=== PATIENT | male | born 1950 | race Caucasian/White ===

== ENCOUNTER 2022-04-24 06:13 | Inpatient (IN) ==
[2022-04-19 12:09] LABS: Basophils # 0.1 10*3/uL (0.0-0.2); Basophils % 1.3 % (0.0-0.8); Eosinophils # 0.2 10*3/uL (0.0-0.87); Eosinophils % 2.7 % (0.00-10.9); Hematocrit 41.1 VOL% (42.0-52.0); Hemoglobin 13.3 GM/DL (14.0-18.0); Immature Granulocytes % 3.7 %; Immature Granulocytes Absolute 0.26 #; Lymphocytes # 1.8 10*3/uL (1.4-4.0); Lymphocytes % 26.2 % (21.2-54.2); Mean Corpuscular HGB Conc 32.4 GM/DL (32-36); Monocytes # 0.6 10*3/uL (0.11-0.8); Monocytes % 8.4 % (1.7-12.7); Neutrophils % 57.7 % (38.7-73.9); Platelet Count 265 T/CUMM (130-400); Red Blood Count 4.89 MC/CUMM (3.8-5.5); White Blood Count 6.9 T/CUMM (4-12)
[2022-04-19 12:17] LABS: INR 0.9; PT Patient Result 9.8 SECS (10.1-12.1)
[2022-04-19 12:25] LABS: Alanine Aminotransferase 61 U/L (16-61); Albumin 3.7 G/DL (3.4-5.0); Alkaline Phosphatase 238 U/L (45-117); Aspartate Amino Transferase 25 U/L (0-37); Bilirubin,Total < 0.39 MG/DL (0.20-1.00); Blood Urea Nitrogen 31 MG/DL (7-18); Carbon Dioxide 18 MMOL/L (21-32); Chloride 111 MMOL/L (98-107); Glucose 319 MG/DL (74-106); Osmolality,Calculated 295.5 MOS/KG (273-304); Potassium 4.9 MMOL/L (3.5-5.1); Sodium 139 MMOL/L (136-145); Total Protein 7.6 G/DL (6.4-8.2)
[2022-04-24] MEDS ORDERED: VANCOMYCIN 500 MG VIAL ONE (06:25)
[2022-04-24] MEDS ORDERED: VANCOMYCIN INJ 500 MG in SODIUM CHLORIDE 0.9% 100 ML IV ONE (06:30)
[2022-04-24] MEDS ORDERED: HEPARIN 10,000 UNIT/10 ML VIAL ONE ×4 (06:54→20:15)
[2022-04-24] MEDS ORDERED: HEPARIN/NACL 0.9% 2 UNITS/ML 1,000 UNIT/500 ML BAG IV ONE (06:54)
[2022-04-24] MEDS ORDERED: LIDOCAINE 1% 5 ML VIAL ONE (06:55)
[2022-04-24] MEDS ORDERED: SODIUM CHLORIDE 0.9% 1,000 ML IV ONE (06:55)
[2022-04-24] MEDS ORDERED: HEPARIN/NACL 0.9% 2 UNITS/ML 2,000 UNIT/1,000 ML BAG IV ONE ×3 (07:13→18:11)
[2022-04-24] MEDS ORDERED: MIDAZOLAM 2 MG/2 ML VIAL ONE ×4 (07:14→18:11)
[2022-04-24] MEDS ORDERED: fentaNYL 100 MCG/2 ML VIAL ONE ×6 (07:14→20:10)
[2022-04-24] MEDS ORDERED: LACTATED RINGERS 1,000 ML IV SCH (08:00)
[2022-04-24] MEDS ORDERED: PNEUMOCOCCAL VACCINE (13 VALENT) 0.5 ML SYRINGE IM ONE (08:32)
[2022-04-24] MEDS ORDERED: ONDANSETRON 4 MG/2 ML VIAL IV PRN ×2 (10:20→16:45)
[2022-04-24] MEDS ORDERED: GLUCAGON 1 MG VIAL IM PRN (10:23)
[2022-04-24] MEDS ORDERED: DEXMEDETOMIDINE 200 MCG/2 ML VIAL ONE (10:24)
[2022-04-24] MEDS ORDERED: MIDAZOLAM 10 MG/2 ML VIAL ONE (10:38)
[2022-04-24] MEDS: HYDROmorphone 1 MG/1 ML SYRINGE IV PRN ×6 (10:40→21:42)
[2022-04-24] MEDS ORDERED: LABETALOL 20 MG/4 ML SYRINGE IV ONE ×2 (11:30→11:46)
[2022-04-24] MEDS ORDERED: HEPARIN 5,000 UNIT/1 ML VIAL ONE ×2 (11:59)
[2022-04-24] MEDS ORDERED: HEPARIN 5,000 UNIT/1 ML VIAL IV ONE (12:00)
[2022-04-24] MEDS ORDERED: NITROGLYCERIN DRIP 50 MG/250 ML BOTTLE IV ONE ×2 (12:02→17:04)
[2022-04-24] MEDS ORDERED: SODIUM CHLORIDE 0.9% 1,000 ML IV PRN (12:03)
[2022-04-24] MEDS ORDERED: propofoL 200 MG/20 ML VIAL IV ONE ×2 (12:46→18:11)
[2022-04-24] MEDS ORDERED: ONDANSETRON 4 MG/2 ML VIAL ONE (12:47)
[2022-04-24] MEDS ORDERED: GLYCOPYRROLATE 0.4 MG/2 ML VIAL ONE (12:47)
[2022-04-24] MEDS ORDERED: SUCCINYLCHOLINE 200 MG/10 ML VIAL ONE (12:47)
[2022-04-24] MEDS ORDERED: LABETALOL 100 MG/20 ML VIAL IV ONE (12:47)
[2022-04-24] MEDS ORDERED: NEOSTIGMINE 10 MG/10 ML VIAL ONE (12:47)
[2022-04-24] MEDS ORDERED: ROCURONIUM 50 MG/5 ML VIAL IV ONE ×3 (12:47→20:13)
[2022-04-24] MEDS ORDERED: LACTATED RINGERS 1,000 ML IV ONE ×2 (12:47→20:15)
[2022-04-24] MEDS ORDERED: PHENYLEPHRINE DRIP 20 MG/250 ML PREMIX IV ONE ×2 (12:47→13:18)
[2022-04-24] MEDS ORDERED: SEVOFLURANE 1 UNIT/15 MINUTE INH ONE ×2 (12:49→21:04)
[2022-04-24] MEDS ORDERED: HEPARIN/NACL 0.9% 2 UNITS/ML 4,000 UNIT/2,000 ML BAG IV ONE (12:53)
[2022-04-24] MEDS ORDERED: LIDOCAINE 2% 5 ML VIAL MISC INJ ONE (14:00)
[2022-04-24] MEDS ORDERED: TISSUE ADHESIVE 1 EACH APPLICATOR TOP ONE ×2 (14:10→15:57)
[2022-04-24] MEDS ORDERED: ALTEPLASE 2 MG VIAL ONE ×2 (15:25→18:24)
[2022-04-24] MEDS ORDERED: DEXTROSE 10% 250 ML BAG IV PRN (15:43)
[2022-04-24] MEDS ORDERED: SUGAMMADEX 200 MG/2 ML VIAL IV ONE (15:46)
[2022-04-24] MEDS ORDERED: NITROGLYCERIN DRIP 50 MG/250 ML BOTTLE IV PRN (17:14)
[2022-04-24 17:28] LABS: Basophils # 0.1 10*3/uL (0.0-0.2); Basophils % 0.9 % (0.0-0.8); Eosinophils # 0.1 10*3/uL (0.0-0.87); Eosinophils % 0.7 % (0.00-10.9); Hemoglobin 10.8 GM/DL (14.0-18.0); Immature Granulocytes % 4.9 %; Immature Granulocytes Absolute 0.71 #; Lymphocytes % 14.1 % (21.2-54.2); Mean Corpuscular HGB Conc 31.8 GM/DL (32-36); Mean Corpuscular Volume 84.6 FL (87-102); Mean Platelet Volume 10.8 FL (9.6-12.0); Monocytes # 1.4 10*3/uL (0.11-0.8); Monocytes % 9.5 % (1.7-12.7); Neutrophils % 69.9 % (38.7-73.9); Platelet Count 244 T/CUMM (130-400); Red Blood Count 4.02 MC/CUMM (3.8-5.5); Red Cell Distribution Width 17.4 % (9.3-17.3); White Blood Count 14.4 T/CUMM (4-12)
[2022-04-24 17:45] LABS: INR 0.9; PT Patient Result 10.3 SECS (10.1-12.1); Partial Thromboplastin Time 41.9 SECS (23.7-32.9)
[2022-04-24] MEDS: HEPARIN DRIP 25,000 UNITS/500 ML PREMIX IV SCH (17:56)
[2022-04-24] MEDS: INSULIN REGULAR 100 UNIT/ML SUBCUT SCH ×3 (18:01→22:44)
[2022-04-24 18:07] LABS: Calcium 7.9 MG/DL (8.5-10.1); Osmolality,Calculated 292.3 MOS/KG (273-304); Potassium 4.8 MMOL/L (3.5-5.1)
[2022-04-24] MEDS ORDERED: ETOMIDATE 40 MG/20 ML VIAL IV ONE (18:10)
[2022-04-24] MEDS ORDERED: LIDOCAINE 2% 5 ML VIAL ONE (18:10)
[2022-04-24] MEDS ORDERED: VANCOMYCIN 1,000 MG VIAL ONE (18:51)
[2022-04-24] MEDS ORDERED: VANCOMYCIN INJ 1,000 MG in SODIUM CHLORIDE 0.9% 250 ML IV ONE (19:00)
[2022-04-24] MEDS: LACTATED RINGERS 1,000 ML IV SCH ×2 (19:01→19:26)
[2022-04-24] MEDS ORDERED: PHENYLEPHRINE 1 MG/10 ML SYRINGE IV ONE (19:25)
[2022-04-24] MEDS ORDERED: SODIUM CHLORIDE 0.9% 250 ML IV ONE (19:25)
[2022-04-24 20:25] LABS: Eosinophils 1 % (0-10); Lymphocytes 17 % (20-55); Total Cells Counted 100
[2022-04-24 20:26] LABS: Atypical Lymphocytes Few; Platelet Estimate Normal; Toxic Granulation 1+
[2022-04-24] MEDS ORDERED: SODIUM BICARBONATE 50 MEQ/50 ML VIAL IV ONE (20:43)
[2022-04-24] MEDS ORDERED: FAMOTIDINE 20 MG TABLET PO SCH (21:00)
[2022-04-24] MEDS ORDERED: HEPARIN DRIP 25,000 UNITS/500 ML PREMIX IV SCH (21:00)
[2022-04-24] MEDS: ALTEPLASE 24 MG in SODIUM CHLORIDE 0.9% 480 ML IV SCH (21:20)
[2022-04-24 21:56] LABS: ABG Base Excess -7.3 MMOL/L (-2.5-2.5); ABG HCO3 18.5 MMOL/L (20-26); ABG Oxygen Saturation 99.2 % (95-100); ABG PH 7.251 (7.35-7.45); ABG TCO2 18.2 MMOL/L (23-27)
[2022-04-24] MEDS: fentaNYL INJ 1,250 MCG in SODIUM CHLORIDE 0.9% 225 ML IV PRN (21:58)
[2022-04-24 22:31] LABS: PT Patient Result 10.6 SECS (10.1-12.1)
[2022-04-24] MEDS: INSULIN GLARGINE 100 UNIT/ML SUBCUT SCH (22:32)
[2022-04-24 22:54] LABS: Partial Thromboplastin Time 108.7 SECS (23.7-32.9)
[2022-04-24] MEDS: SODIUM BICARB INJ 50 MEQ in SODIUM CHLORIDE 0.45% 1,000 ML IV SCH (23:00)
[2022-04-24 23:33] LABS: INR 0.9; PT Patient Result 10.4 SECS (10.1-12.1); Partial Thromboplastin Time 59.4 SECS (23.7-32.9)
[2022-04-25 01:24] LABS: Calcium 7.5 MG/DL (8.5-10.1); Potassium 4.7 MMOL/L (3.5-5.1)
[2022-04-25 03:35] LABS: Basophils % 0.4 % (0.0-0.8); Eosinophils % 0.3 % (0.00-10.9); Hematocrit 30.5 VOL% (42.0-52.0); Immature Granulocytes % 1.8 %; Immature Granulocytes Absolute 0.18 #; Lymphocytes # 1.1 10*3/uL (1.4-4.0); Mean Corpuscular HGB Conc 32.8 GM/DL (32-36); Mean Corpuscular Volume 85.4 FL (87-102); Mean Platelet Volume 10.1 FL (9.6-12.0); Monocytes # 1.3 10*3/uL (0.11-0.8); Monocytes % 13.5 % (1.7-12.7); Platelet Count 167 T/CUMM (130-400); Red Blood Count 3.57 MC/CUMM (3.8-5.5); White Blood Count 9.8 T/CUMM (4-12)
[2022-04-25 03:48] LABS: INR 0.9; PT Patient Result 10.1 SECS (10.1-12.1)
[2022-04-25 03:52] LABS: Calcium 7.4 MG/DL (8.5-10.1); Potassium 4.5 MMOL/L (3.5-5.1)
[2022-04-25 03:53] LABS: ABG Base Excess -4.8 MMOL/L (-2.5-2.5); ABG HCO3 20.5 MMOL/L (20-26); ABG Oxygen Saturation 99.1 % (95-100); ABG PH 7.292 (7.35-7.45); ABG TCO2 19.9 MMOL/L (23-27)
[2022-04-25] MEDS: fentaNYL INJ 1,250 MCG in SODIUM CHLORIDE 0.9% 225 ML IV PRN ×3 (04:23→17:21)
[2022-04-25] MEDS ORDERED: LACTATED RINGERS 500 ML IV ONE (04:28)
[2022-04-25] MEDS ORDERED: MIDAZOLAM 100 MG in SODIUM CHLORIDE 0.9% 80 ML IV PRN (04:43)
[2022-04-25 06:01] LABS: INR 0.9; PT Patient Result 10.2 SECS (10.1-12.1); Partial Thromboplastin Time 30.3 SECS (23.7-32.9)
[2022-04-25] MEDS: SODIUM BICARB INJ 50 MEQ in SODIUM CHLORIDE 0.45% 1,000 ML IV SCH ×2 (08:09→19:52)
[2022-04-25] MEDS: INSULIN REGULAR 100 UNIT/ML SUBCUT SCH ×4 (09:13→20:03)
[2022-04-25 09:14] LABS: Partial Thromboplastin Time 28.8 SECS (23.7-32.9)
[2022-04-25] MEDS: PANTOPRAZOLE 40 MG VIAL IV SCH (09:14)
[2022-04-25] MEDS: lisinopriL 20 MG TABLET PO SCH (10:21)
[2022-04-25] MEDS: ASPIRIN CHEW 81 MG TABLET PO SCH (10:21)
[2022-04-25] MEDS ORDERED: NOREPINEPHRINE 4 MG/4 ML VIAL IV ONE (11:18)
[2022-04-25 11:28] LABS: ABG Base Excess -3.6 MMOL/L (-2.5-2.5); ABG HCO3 21.4 MMOL/L (20-26); ABG PCO2 38.5 MM HG (35-48); ABG PH 7.355 (7.35-7.45)
[2022-04-25] MEDS ORDERED: HEPARIN/NACL 0.9% 2 UNITS/ML 2,000 UNIT/1,000 ML BAG IV ONE (11:29)
[2022-04-25] MEDS ORDERED: MIDAZOLAM 10 MG/2 ML VIAL ONE (11:38)
[2022-04-25] MEDS ORDERED: ROCURONIUM 50 MG/5 ML VIAL IV ONE ×2 (11:38→13:41)
[2022-04-25] MEDS ORDERED: HEPARIN 1,000 UNIT/1 ML VIAL ONE (12:23)
[2022-04-25] MEDS ORDERED: ALTEPLASE 2 MG VIAL ONE (12:53)
[2022-04-25] MEDS ORDERED: SEVOFLURANE 1 UNIT/15 MINUTE INH ONE (13:41)
[2022-04-25] MEDS: HEPARIN DRIP 25,000 UNITS/500 ML PREMIX IV SCH (19:36)
[2022-04-25] MEDS: INSULIN GLARGINE 100 UNIT/ML SUBCUT SCH (20:04)
[2022-04-25] MEDS: ALTEPLASE 24 MG in SODIUM CHLORIDE 0.9% 480 ML IV SCH (21:07)
[2022-04-25 21:17] LABS: Partial Thromboplastin Time 29.4 SECS (23.7-32.9)
[2022-04-25 22:38] LABS: Hematocrit 28.8 VOL% (42.0-52.0); Hemoglobin 8.9 GM/DL (14.0-18.0)
[2022-04-25] MEDS: HYDROmorphone 1 MG/1 ML SYRINGE IV PRN (22:38)
[2022-04-26] MEDS: fentaNYL INJ 1,250 MCG in SODIUM CHLORIDE 0.9% 225 ML IV PRN ×2 (00:09→07:50)
[2022-04-26] MEDS: SODIUM BICARB INJ 50 MEQ in SODIUM CHLORIDE 0.45% 1,000 ML IV SCH ×4 (00:23→12:23)
[2022-04-26 04:35] LABS: ABG Base Excess -2.9 MMOL/L (-2.5-2.5); ABG Oxygen Saturation 98.7 % (95-100); ABG PCO2 43.1 MM HG (35-48); ABG PH 7.332 (7.35-7.45); ABG TCO2 21.4 MMOL/L (23-27)
[2022-04-26 04:36] LABS: Basophils % 0.4 % (0.0-0.8); Eosinophils % 0.5 % (0.00-10.9); Hematocrit 25.4 VOL% (42.0-52.0); Hemoglobin 7.8 GM/DL (14.0-18.0); Immature Granulocytes % 0.8 %; Immature Granulocytes Absolute 0.07 #; Lymphocytes # 0.7 10*3/uL (1.4-4.0); Lymphocytes % 8.8 % (21.2-54.2); Mean Corpuscular HGB Conc 30.7 GM/DL (32-36); Mean Corpuscular Volume 87.9 FL (87-102); Mean Platelet Volume 10.5 FL (9.6-12.0); Monocytes # 1.2 10*3/uL (0.11-0.8); Monocytes % 14.1 % (1.7-12.7); Neutrophils % 75.4 % (38.7-73.9); Platelet Count 120 T/CUMM (130-400); Red Blood Count 2.89 MC/CUMM (3.8-5.5); Red Cell Distribution Width 18.2 % (9.3-17.3); White Blood Count 8.4 T/CUMM (4-12)
[2022-04-26 04:51] LABS: Calcium 7.1 MG/DL (8.5-10.1); Osmolality,Calculated 297.6 MOS/KG (273-304); Potassium 4.1 MMOL/L (3.5-5.1)
[2022-04-26 05:04] LABS: PT Patient Result 10.7 SECS (10.1-12.1)
[2022-04-26 05:10] LABS: Partial Thromboplastin Time 31.1 SECS (23.7-32.9)
[2022-04-26] MEDS: HEPARIN/NACL 0.9% 2 UNITS/ML 1,000 UNIT/500 ML BAG IV SCH (07:00)
[2022-04-26] MEDS ORDERED: HEPARIN 5,000 UNIT/1 ML VIAL ONE (07:38)
[2022-04-26] MEDS ORDERED: TISSUE ADHESIVE 1 EACH APPLICATOR TOP ONE (07:41)
[2022-04-26] MEDS: INSULIN REGULAR 100 UNIT/ML SUBCUT SCH ×4 (08:16→20:08)
[2022-04-26] MEDS: PANTOPRAZOLE 40 MG VIAL IV SCH (08:18)
[2022-04-26] MEDS: lisinopriL 20 MG TABLET PO SCH (08:18)
[2022-04-26] MEDS: ASPIRIN CHEW 81 MG TABLET PO SCH (08:18)
[2022-04-26] MEDS ORDERED: ROCURONIUM 50 MG/5 ML VIAL IV ONE ×2 (08:41→10:09)
[2022-04-26] MEDS ORDERED: VANCOMYCIN INJ 1,000 MG in SODIUM CHLORIDE 0.9% 250 ML IV ONE (08:42)
[2022-04-26] MEDS ORDERED: MIDAZOLAM 10 MG/2 ML VIAL ONE (08:43)
[2022-04-26] MEDS ORDERED: MICROFIBRILLAR COLLAGEN POWDER 1 GM CAN TOP ONE (09:14)
[2022-04-26] MEDS ORDERED: fentaNYL 100 MCG/2 ML VIAL ONE (09:14)
[2022-04-26] MEDS ORDERED: VANCOMYCIN 1,000 MG VIAL ONE (09:22)
[2022-04-26 09:41] LABS: Partial Thromboplastin Time 34.5 SECS (23.7-32.9)
[2022-04-26] MEDS ORDERED: GLYCOPYRROLATE 0.4 MG/2 ML VIAL ONE (10:04)
[2022-04-26] MEDS ORDERED: NEOSTIGMINE 10 MG/10 ML VIAL ONE (10:04)
[2022-04-26] MEDS ORDERED: PHENYLEPHRINE 1 MG/10 ML SYRINGE IV ONE (10:05)
[2022-04-26] MEDS ORDERED: SEVOFLURANE 1 UNIT/15 MINUTE INH ONE (10:05)
[2022-04-26] MEDS ORDERED: MIDAZOLAM 2 MG/2 ML VIAL ONE (10:09)
[2022-04-26] MEDS: HYDROmorphone 1 MG/1 ML SYRINGE IV PRN ×4 (10:47→22:09)
[2022-04-26] MEDS ORDERED: FUROSEMIDE 40 MG/4 ML VIAL IV ONE (11:41)
[2022-04-26] MEDS ORDERED: HEPARIN/NACL 0.9% 2 UNITS/ML 1,000 UNIT/500 ML BAG IV ONE (11:49)
[2022-04-26 11:58] LABS: ABG Base Excess -4.2 MMOL/L (-2.5-2.5); ABG HCO3 20.8 MMOL/L (20-26); ABG Oxygen Saturation 91.7 % (95-100); ABG PCO2 43.9 MM HG (35-48); ABG PO2 65.2 MM HG (80-95); ABG TCO2 19.9 MMOL/L (23-27)
[2022-04-26 12:10] LABS: Basophils % 0.4 % (0.0-0.8); Eosinophils # 0.1 10*3/uL (0.0-0.87); Eosinophils % 0.9 % (0.00-10.9); Hematocrit 30.3 VOL% (42.0-52.0); Hemoglobin 9.3 GM/DL (14.0-18.0); Immature Granulocytes % 1.1 %; Lymphocytes # 0.6 10*3/uL (1.4-4.0); Lymphocytes % 6.2 % (21.2-54.2); Mean Corpuscular HGB Conc 30.7 GM/DL (32-36); Mean Corpuscular Volume 89.1 FL (87-102); Monocytes # 1.5 10*3/uL (0.11-0.8); Monocytes % 16.7 % (1.7-12.7); Neutrophils % 74.7 % (38.7-73.9); Platelet Count 139 T/CUMM (130-400); Red Cell Distribution Width 17.5 % (9.3-17.3); White Blood Count 9.1 T/CUMM (4-12)
[2022-04-26 13:41] LABS: Band Neutrophils 8 % (0-10); Eosinophils 1 % (0-10); Hypochromia 1+; Lymphocytes 9 % (20-55); Total Cells Counted 100
[2022-04-26 13:42] LABS: Platelet Estimate Adequate; Polychromasia Few
[2022-04-26] MEDS: ACETAMINOPHEN 325 MG/10.15 ML UDCUP PO PRN ×2 (14:43→19:04)
[2022-04-26 14:46] LABS: Bacteria,Urine Occasional /HPF (Few); Mucus,Urine Occasional /LPF (Occasional); RBC,Urine 2 /HPF (0-4); Squamous Epithelial Cell,Urine Occasional /HPF (0-10); Urine Appearance Clear (Clear); Urine Color Yellow (Yellow)
[2022-04-26 14:47] LABS: Bilirubin,Urine Negative (Negative); Blood, Urine Large mg/dL (Negative); Glucose,Urine (UA) Negative (Negative); Ketones,Urine Negative (Negative); Nitrite,Urine Positive (Negative); Protein,Urine Negative (Negative); Urine Specific Gravity 1.015 (1.001-1.035); Urine Urobilinogen 0.2 eU/dL (<2.0)
[2022-04-26] MEDS: INSULIN GLARGINE 100 UNIT/ML SUBCUT SCH (20:07)
[2022-04-27 00:28] LABS: Partial Thromboplastin Time 30.4 SECS (23.7-32.9)
[2022-04-27] MEDS: HYDROmorphone 1 MG/1 ML SYRINGE IV PRN ×6 (01:51→23:40)
[2022-04-27 03:55] LABS: ABG Base Excess -1.6 MMOL/L (-2.5-2.5); ABG HCO3 22.9 MMOL/L (20-26); ABG Oxygen Saturation 89.4 % (95-100); ABG PCO2 41.6 MM HG (35-48); ABG PH 7.363 (7.35-7.45); ABG PO2 58.6 MM HG (80-95); ABG TCO2 21.4 MMOL/L (23-27); Basophils % 0.4 % (0.0-0.8); Eosinophils # 0.1 10*3/uL (0.0-0.87); Eosinophils % 0.7 % (0.00-10.9); Hemoglobin 10.4 GM/DL (14.0-18.0); Immature Granulocytes % 0.7 %; Immature Granulocytes Absolute 0.05 #; Lymphocytes # 0.9 10*3/uL (1.4-4.0); Mean Corpuscular HGB Conc 31.5 GM/DL (32-36); Mean Corpuscular Volume 86.8 FL (87-102); Mean Platelet Volume 10.6 FL (9.6-12.0); Monocytes # 1.1 10*3/uL (0.11-0.8); Monocytes % 16.1 % (1.7-12.7); NRBC # 0.02 10*3/uL; Neutrophils % 69.1 % (38.7-73.9); Platelet Count 158 T/CUMM (130-400); Red Cell Distribution Width 17.7 % (9.3-17.3); White Blood Count 6.8 T/CUMM (4-12)
[2022-04-27] MEDS: ACETAMINOPHEN 325 MG/10.15 ML UDCUP PO PRN ×3 (03:58→23:40)
[2022-04-27 04:07] LABS: Osmolality,Calculated 297.7 MOS/KG (273-304); Potassium 3.9 MMOL/L (3.5-5.1)
[2022-04-27 04:18] LABS: Band Neutrophils 12 % (0-10); Eosinophils 1 % (0-10); Lymphocytes 11 % (20-55); Microcytosis 1+; Total Cells Counted 100
[2022-04-27 04:19] LABS: Platelet Estimate Adequate; Polychromasia Slight
[2022-04-27] MEDS: PANTOPRAZOLE 40 MG VIAL IV SCH (08:10)
[2022-04-27] MEDS: INSULIN REGULAR 100 UNIT/ML SUBCUT SCH ×3 (08:10→16:30)
[2022-04-27] MEDS: ASPIRIN CHEW 81 MG TABLET PO SCH (08:15)
[2022-04-27] MEDS: lisinopriL 20 MG TABLET PO SCH (08:15)
[2022-04-27] MEDS: NOREPINEPHRINE 8 MG in SODIUM CHLORIDE 0.9% 242 ML IV PRN (09:00)
[2022-04-27] MEDS ORDERED: CLOPIDOGREL 300 MG TABLET PO ONE (09:44)
[2022-04-27] MEDS: SODIUM BICARB INJ 50 MEQ in SODIUM CHLORIDE 0.45% 1,000 ML IV SCH (11:20)
[2022-04-27] MEDS: INSULIN LISPRO 100 UNIT/ML SUBCUT SCH ×2 (20:09→23:39)
[2022-04-27] MEDS: INSULIN GLARGINE 100 UNIT/ML SUBCUT SCH (20:09)
[2022-04-27] MEDS: HEPARIN/NACL 0.9% 2 UNITS/ML 1,000 UNIT/500 ML BAG IV SCH (20:18)
[2022-04-28 00:01] LABS: Partial Thromboplastin Time 33.6 SECS (23.7-32.9)
[2022-04-28] MEDS: NOREPINEPHRINE 8 MG in SODIUM CHLORIDE 0.9% 242 ML IV PRN ×2 (02:04→22:58)
[2022-04-28 03:56] LABS: ABG Base Excess 0.2 MMOL/L (-2.5-2.5); ABG HCO3 24.6 MMOL/L (20-26); ABG Oxygen Saturation 98.2 % (95-100); ABG PCO2 41.7 MM HG (35-48); ABG TCO2 22.7 MMOL/L (23-27); Basophils # 0.1 10*3/uL (0.0-0.2); Basophils % 0.5 % (0.0-0.8); Eosinophils # 0.1 10*3/uL (0.0-0.87); Eosinophils % 1.4 % (0.00-10.9); Hematocrit 30.1 VOL% (42.0-52.0); Hemoglobin 9.4 GM/DL (14.0-18.0); Lymphocytes % 9.4 % (21.2-54.2); Mean Corpuscular HGB Conc 31.2 GM/DL (32-36); Mean Corpuscular Volume 86.5 FL (87-102); Mean Platelet Volume 11.1 FL (9.6-12.0); Monocytes # 1.5 10*3/uL (0.11-0.8); Monocytes % 14.4 % (1.7-12.7); NRBC # 0.04 10*3/uL; Neutrophils % 72.3 % (38.7-73.9); Platelet Count 219 T/CUMM (130-400); Red Blood Count 3.48 MC/CUMM (3.8-5.5); Red Cell Distribution Width 17.7 % (9.3-17.3); White Blood Count 10.2 T/CUMM (4-12)
[2022-04-28 04:10] LABS: Osmolality,Calculated 303.4 MOS/KG (273-304); Potassium 3.6 MMOL/L (3.5-5.1)
[2022-04-28] MEDS: HYDROmorphone 1 MG/1 ML SYRINGE IV PRN ×4 (04:17→19:43)
[2022-04-28] MEDS: INSULIN LISPRO 100 UNIT/ML SUBCUT SCH ×5 (04:17→20:02)
[2022-04-28 04:24] LABS: Band Neutrophils 6 % (0-10); Eosinophils 1 % (0-10); Hypochromia Slight; Lymphocytes 10 % (20-55); Nucleated Red Blood Cells 2 (0-5); Promyelocytes 1 %; Total Cells Counted 100
[2022-04-28 04:25] LABS: Microcytosis 1+; Platelet Estimate Normal
[2022-04-28] MEDS: SODIUM BICARB INJ 50 MEQ in SODIUM CHLORIDE 0.45% 1,000 ML IV SCH ×2 (05:05→09:12)
[2022-04-28] MEDS: PANTOPRAZOLE 40 MG VIAL IV SCH (09:23)
[2022-04-28] MEDS: CLOPIDOGREL 75 MG TABLET PO SCH (09:23)
[2022-04-28] MEDS: lisinopriL 20 MG TABLET PO SCH (09:23)
[2022-04-28] MEDS: ASPIRIN CHEW 81 MG TABLET PO SCH (09:23)
[2022-04-28] MEDS ORDERED: VANCOMYCIN INJ 1,000 MG in SODIUM CHLORIDE 0.9% 250 ML IV SCH (10:30)
[2022-04-28] MEDS: HEPARIN/NACL 0.9% 2 UNITS/ML 1,000 UNIT/500 ML BAG IV SCH (10:41)
[2022-04-28] MEDS: VANCOMYCIN INJ 1,250 MG in SODIUM CHLORIDE 0.9% 250 ML IV SCH (14:37)
[2022-04-28] MEDS: ACETAMINOPHEN 325 MG/10.15 ML UDCUP PO PRN ×2 (15:03→19:42)
[2022-04-28] MEDS: INSULIN GLARGINE 100 UNIT/ML SUBCUT SCH (20:03)
[2022-04-29] MEDS: ACETAMINOPHEN 325 MG/10.15 ML UDCUP PO PRN ×4 (00:05→16:40)
[2022-04-29] MEDS: INSULIN LISPRO 100 UNIT/ML SUBCUT SCH ×6 (00:08→20:42)
[2022-04-29] MEDS: SODIUM BICARB INJ 50 MEQ in SODIUM CHLORIDE 0.45% 1,000 ML IV SCH ×2 (02:37→05:33)
[2022-04-29 03:55] LABS: ABG Base Excess 0.3 MMOL/L (-2.5-2.5); ABG HCO3 24.7 MMOL/L (20-26); ABG Oxygen Saturation 94.7 % (95-100); ABG PCO2 37.5 MM HG (35-48); ABG PH 7.423 (7.35-7.45); ABG TCO2 22.3 MMOL/L (23-27)
[2022-04-29 03:59] LABS: Basophils # 0.1 10*3/uL (0.0-0.2); Basophils % 0.6 % (0.0-0.8); Eosinophils # 0.2 10*3/uL (0.0-0.87); Eosinophils % 1.6 % (0.00-10.9); Hematocrit 29.5 VOL% (42.0-52.0); Immature Granulocytes % 5.8 %; Lymphocytes # 0.4 10*3/uL (1.4-4.0); Lymphocytes % 4.2 % (21.2-54.2); Mean Corpuscular HGB Conc 30.5 GM/DL (32-36); Mean Corpuscular Volume 88.9 FL (87-102); Mean Platelet Volume 10.5 FL (9.6-12.0); Monocytes # 0.9 10*3/uL (0.11-0.8); NRBC # 0.11 10*3/uL; Neutrophils % 78.8 % (38.7-73.9); Platelet Count 213 T/CUMM (130-400); Red Blood Count 3.32 MC/CUMM (3.8-5.5); Red Cell Distribution Width 17.8 % (9.3-17.3); White Blood Count 10.4 T/CUMM (4-12)
[2022-04-29 04:17] LABS: Calcium 8.2 MG/DL (8.5-10.1); Osmolality,Calculated 305.1 MOS/KG (273-304); Potassium 3.3 MMOL/L (3.5-5.1)
[2022-04-29 04:19] LABS: Band Neutrophils 10 % (0-10); Eosinophils 5 % (0-10); Hypochromia 1+; Lymphocytes 3 % (20-55); Microcytosis 1+; Myelocytes 1 %; Nucleated Red Blood Cells 1 (0-5); Platelet Estimate Adequate; Total Cells Counted 100
[2022-04-29] MEDS ORDERED: POTASSIUM CHLORIDE RIDER 10 MEQ/100 ML PREMIX IV ONE (04:31)
[2022-04-29] MEDS: POTASSIUM CHLORIDE RIDER 10 MEQ/100 ML PREMIX IV SCH ×4 (04:34→08:28)
[2022-04-29] MEDS: HEPARIN/NACL 0.9% 2 UNITS/ML 1,000 UNIT/500 ML BAG IV SCH (06:35)
[2022-04-29] MEDS: CLOPIDOGREL 75 MG TABLET PO SCH (08:27)
[2022-04-29] MEDS: PANTOPRAZOLE 40 MG VIAL IV SCH (08:27)
[2022-04-29] MEDS: ASPIRIN CHEW 81 MG TABLET PO SCH (08:27)
[2022-04-29] MEDS: VANCOMYCIN INJ 1,250 MG in SODIUM CHLORIDE 0.9% 250 ML IV SCH (09:34)
[2022-04-29] MEDS: MEROPENEM 500 MG in SODIUM CHLORIDE 0.9% 100 ML IV SCH ×2 (11:52→18:19)
[2022-04-29] MEDS: INSULIN GLARGINE 100 UNIT/ML SUBCUT SCH (20:42)
[2022-04-30] MEDS: INSULIN LISPRO 100 UNIT/ML SUBCUT SCH ×6 (00:17→20:44)
[2022-04-30] MEDS: SODIUM BICARB INJ 50 MEQ in SODIUM CHLORIDE 0.45% 1,000 ML IV SCH ×3 (00:17→21:53)
[2022-04-30] MEDS: VANCOMYCIN INJ 1,250 MG in SODIUM CHLORIDE 0.9% 250 ML IV SCH (01:30)
[2022-04-30] MEDS: MEROPENEM 500 MG in SODIUM CHLORIDE 0.9% 100 ML IV SCH ×3 (03:06→18:43)
[2022-04-30 04:56] LABS: ABG Base Excess -1.3 MMOL/L (-2.5-2.5); ABG HCO3 23.4 MMOL/L (20-26); ABG Oxygen Saturation 98.9 % (95-100); ABG PCO2 38.7 MM HG (35-48); ABG TCO2 21.6 MMOL/L (23-27)
[2022-04-30 05:01] LABS: Basophils # 0.1 10*3/uL (0.0-0.2); Basophils % 0.5 % (0.0-0.8); Eosinophils # 0.2 10*3/uL (0.0-0.87); Eosinophils % 1.2 % (0.00-10.9); Hematocrit 28.2 VOL% (42.0-52.0); Hemoglobin 8.8 GM/DL (14.0-18.0); Immature Granulocytes % 7.1 %; Immature Granulocytes Absolute 1.09 #; Lymphocytes # 0.6 10*3/uL (1.4-4.0); Lymphocytes % 4.1 % (21.2-54.2); Mean Corpuscular HGB Conc 31.2 GM/DL (32-36); Mean Corpuscular Volume 87.9 FL (87-102); Mean Platelet Volume 10.8 FL (9.6-12.0); Monocytes # 1.6 10*3/uL (0.11-0.8); Monocytes % 10.2 % (1.7-12.7); NRBC # 0.05 10*3/uL; Neutrophils % 76.9 % (38.7-73.9); Platelet Count 222 T/CUMM (130-400); Red Blood Count 3.21 MC/CUMM (3.8-5.5); Red Cell Distribution Width 18.2 % (9.3-17.3); White Blood Count 15.3 T/CUMM (4-12)
[2022-04-30 05:13] LABS: Calcium 8.4 MG/DL (8.5-10.1); Osmolality,Calculated 305.3 MOS/KG (273-304); Potassium 3.6 MMOL/L (3.5-5.1)
[2022-04-30 05:20] LABS: Band Neutrophils 7 % (0-10); Hypochromia Slight; Lymphocytes 4 % (20-55); Microcytosis Slight; Platelet Estimate Adequate; Total Cells Counted 100
[2022-04-30] MEDS: HEPARIN/NACL 0.9% 2 UNITS/ML 1,000 UNIT/500 ML BAG IV SCH (06:13)
[2022-04-30] MEDS: PANTOPRAZOLE 40 MG VIAL IV SCH (09:03)
[2022-04-30] MEDS: ASPIRIN CHEW 81 MG TABLET PO SCH (09:04)
[2022-04-30] MEDS: CLOPIDOGREL 75 MG TABLET PO SCH (09:05)
[2022-04-30] MEDS: ACETAMINOPHEN 325 MG/10.15 ML UDCUP PO PRN (14:38)
[2022-04-30] MEDS: INSULIN GLARGINE 100 UNIT/ML SUBCUT SCH (20:44)
[2022-05-01] MEDS: INSULIN LISPRO 100 UNIT/ML SUBCUT SCH ×6 (00:28→19:49)
[2022-05-01] MEDS: MEROPENEM 500 MG in SODIUM CHLORIDE 0.9% 100 ML IV SCH ×3 (01:48→17:30)
[2022-05-01 03:48] LABS: ABG Base Excess 0.6 MMOL/L (-2.5-2.5); ABG HCO3 24.9 MMOL/L (20-26); ABG Oxygen Saturation 98.6 % (95-100); ABG PCO2 37.8 MM HG (35-48); ABG PH 7.425 (7.35-7.45); ABG TCO2 22.9 MMOL/L (23-27); Basophils # 0.1 10*3/uL (0.0-0.2); Basophils % 0.6 % (0.0-0.8); Eosinophils # 0.3 10*3/uL (0.0-0.87); Eosinophils % 1.4 % (0.00-10.9); Hematocrit 26.9 VOL% (42.0-52.0); Hemoglobin 8.3 GM/DL (14.0-18.0); Immature Granulocytes % 9.4 %; Immature Granulocytes Absolute 1.81 #; Lymphocytes # 0.9 10*3/uL (1.4-4.0); Lymphocytes % 4.9 % (21.2-54.2); Mean Corpuscular HGB Conc 30.9 GM/DL (32-36); Mean Corpuscular Volume 87.9 FL (87-102); Mean Platelet Volume 11.2 FL (9.6-12.0); Monocytes # 1.5 10*3/uL (0.11-0.8); Monocytes % 7.8 % (1.7-12.7); NRBC # 0.07 10*3/uL; Neutrophils % 75.9 % (38.7-73.9); Platelet Count 287 T/CUMM (130-400); Red Blood Count 3.06 MC/CUMM (3.8-5.5); Red Cell Distribution Width 18.6 % (9.3-17.3); White Blood Count 19.2 T/CUMM (4-12)
[2022-05-01 04:02] LABS: Calcium 8.3 MG/DL (8.5-10.1); Osmolality,Calculated 317.7 MOS/KG (273-304); Potassium 3.6 MMOL/L (3.5-5.1)
[2022-05-01 04:22] LABS: Band Neutrophils 1 % (0-10); Eosinophils 3 % (0-10); Hypochromia Slight; Lymphocytes 7 % (20-55); Microcytosis Slight; Nucleated Red Blood Cells 1 /100 WBC (0-5); Platelet Estimate Adequate; Total Cells Counted 100
[2022-05-01] MEDS: HEPARIN/NACL 0.9% 2 UNITS/ML 1,000 UNIT/500 ML BAG IV SCH (07:57)
[2022-05-01] MEDS: PANTOPRAZOLE 40 MG VIAL IV SCH (08:04)
[2022-05-01] MEDS: ASPIRIN CHEW 81 MG TABLET PO SCH (08:05)
[2022-05-01] MEDS: CLOPIDOGREL 75 MG TABLET PO SCH (08:05)
[2022-05-01] MEDS: SODIUM CHLORIDE 0.45% 1,000 ML IV SCH ×2 (10:15→19:58)
[2022-05-01] MEDS ORDERED: MORPHINE 2 MG/1 ML SYRINGE ONE (13:50)
[2022-05-01] MEDS: MORPHINE 2 MG/1 ML SYRINGE IV PRN ×2 (14:00→20:34)
[2022-05-01] MEDS: ACETAMINOPHEN 325 MG/10.15 ML UDCUP PO PRN (14:04)
[2022-05-01] MEDS: hydrALAZINE 20 MG/1 ML VIAL IV PRN (20:34)
[2022-05-01] MEDS: INSULIN GLARGINE 100 UNIT/ML SUBCUT SCH (21:57)
[2022-05-02] MEDS: INSULIN LISPRO 100 UNIT/ML SUBCUT SCH ×6 (00:10→20:43)
[2022-05-02] MEDS: MEROPENEM 500 MG in SODIUM CHLORIDE 0.9% 100 ML IV SCH ×3 (01:31→17:30)
[2022-05-02 04:57] LABS: ABG Base Excess -1.8 MMOL/L (-2.5-2.5); ABG HCO3 22.9 MMOL/L (20-26); ABG Oxygen Saturation 96.8 % (95-100); ABG PCO2 38.3 MM HG (35-48); ABG PH 7.386 (7.35-7.45); ABG TCO2 21.4 MMOL/L (23-27)
[2022-05-02 05:00] LABS: Basophils # 0.1 10*3/uL (0.0-0.2); Basophils % 0.6 % (0.0-0.8); Eosinophils # 0.4 10*3/uL (0.0-0.87); Eosinophils % 1.7 % (0.00-10.9); Hematocrit 25.9 VOL% (42.0-52.0); Immature Granulocytes % 12.4 %; Immature Granulocytes Absolute 2.77 #; Lymphocytes # 1.2 10*3/uL (1.4-4.0); Lymphocytes % 5.5 % (21.2-54.2); Mean Corpuscular HGB Conc 30.9 GM/DL (32-36); Mean Corpuscular Volume 89.3 FL (87-102); Mean Platelet Volume 11.1 FL (9.6-12.0); Monocytes # 1.5 10*3/uL (0.11-0.8); Monocytes % 6.5 % (1.7-12.7); NRBC # 0.06 10*3/uL; Neutrophils % 73.3 % (38.7-73.9); Platelet Count 327 T/CUMM (130-400); Red Cell Distribution Width 18.7 % (9.3-17.3); White Blood Count 22.4 T/CUMM (4-12)
[2022-05-02 05:14] LABS: Calcium 8.1 MG/DL (8.5-10.1); Osmolality,Calculated 323.4 MOS/KG (273-304); Potassium 3.6 MMOL/L (3.5-5.1)
[2022-05-02 05:20] LABS: Band Neutrophils 3 % (0-10); Hypochromia Slight; Lymphocytes 6 % (20-55); Microcytosis Slight; Platelet Estimate Adequate; Total Cells Counted 100
[2022-05-02] MEDS: SODIUM CHLORIDE 0.45% 1,000 ML IV SCH ×2 (05:53→16:00)
[2022-05-02] MEDS: HEPARIN/NACL 0.9% 2 UNITS/ML 1,000 UNIT/500 ML BAG IV SCH (06:03)
[2022-05-02] MEDS: hydrALAZINE 20 MG/1 ML VIAL IV PRN (06:14)
[2022-05-02] MEDS: MORPHINE 2 MG/1 ML SYRINGE IV PRN ×2 (06:14→14:55)
[2022-05-02] MEDS: PANTOPRAZOLE 40 MG VIAL IV SCH (08:04)
[2022-05-02] MEDS: CLOPIDOGREL 75 MG TABLET PO SCH (08:05)
[2022-05-02] MEDS: ASPIRIN CHEW 81 MG TABLET PO SCH (08:05)
[2022-05-02] MEDS ORDERED: methylPREDNISolone SOD SUC 125 MG/2 ML VIAL IV ONE (08:35)
[2022-05-02] MEDS: ALBUTEROL/IPRATROPIUM 3 ML NEB RESP TX SCH ×2 (13:52→19:18)
[2022-05-02] MEDS: INSULIN GLARGINE 100 UNIT/ML SUBCUT SCH (20:43)
[2022-05-03] MEDS: INSULIN LISPRO 100 UNIT/ML SUBCUT SCH ×6 (00:01→21:19)
[2022-05-03] MEDS: ALBUTEROL/IPRATROPIUM 3 ML NEB RESP TX SCH ×4 (00:30→19:50)
[2022-05-03] MEDS: SODIUM CHLORIDE 0.45% 1,000 ML IV SCH ×3 (02:11→23:23)
[2022-05-03] MEDS: MEROPENEM 500 MG in SODIUM CHLORIDE 0.9% 100 ML IV SCH ×3 (02:40→17:59)
[2022-05-03 05:44] LABS: Basophils # 0.1 10*3/uL (0.0-0.2); Basophils % 0.5 % (0.0-0.8); Eosinophils % 0.2 % (0.00-10.9); Hematocrit 25.4 VOL% (42.0-52.0); Hemoglobin 7.8 GM/DL (14.0-18.0); Lymphocytes # 1.3 10*3/uL (1.4-4.0); Lymphocytes % 6.4 % (21.2-54.2); Mean Corpuscular HGB Conc 30.7 GM/DL (32-36); Mean Corpuscular Volume 88.5 FL (87-102); Mean Platelet Volume 11.1 FL (9.6-12.0); Monocytes # 1.3 10*3/uL (0.11-0.8); Monocytes % 6.1 % (1.7-12.7); NRBC # 0.05 10*3/uL; Neutrophils % 70.8 % (38.7-73.9); Platelet Count 382 T/CUMM (130-400); Red Blood Count 2.87 MC/CUMM (3.8-5.5); Red Cell Distribution Width 18.8 % (9.3-17.3); White Blood Count 20.6 T/CUMM (4-12)
[2022-05-03 05:53] LABS: ABG Base Excess -3.3 MMOL/L (-2.5-2.5); ABG HCO3 21.6 MMOL/L (20-26); ABG Oxygen Saturation 97.3 % (95-100); ABG PCO2 33.9 MM HG (35-48); ABG TCO2 19.7 MMOL/L (23-27)
[2022-05-03 05:55] LABS: Calcium 8.6 MG/DL (8.5-10.1); Osmolality,Calculated 324.6 MOS/KG (273-304); Potassium 3.9 MMOL/L (3.5-5.1)
[2022-05-03 06:11] LABS: Band Neutrophils 6 % (0-10); Hypochromia Slight; Lymphocytes 5 % (20-55); Microcytosis Slight; Myelocytes 1 %; Platelet Estimate Adequate; Total Cells Counted 100
[2022-05-03] MEDS: HEPARIN/NACL 0.9% 2 UNITS/ML 1,000 UNIT/500 ML BAG IV SCH (07:36)
[2022-05-03] MEDS: MORPHINE 2 MG/1 ML SYRINGE IV PRN (08:06)
[2022-05-03] MEDS: CLOPIDOGREL 75 MG TABLET PO SCH (08:26)
[2022-05-03] MEDS: PANTOPRAZOLE 40 MG VIAL IV SCH (08:26)
[2022-05-03] MEDS: ASPIRIN CHEW 81 MG TABLET PO SCH (08:26)
[2022-05-03] MEDS: hydrALAZINE 20 MG/1 ML VIAL IV PRN ×3 (09:38→23:19)
[2022-05-03] MEDS ORDERED: LABETALOL 20 MG/4 ML SYRINGE IV ONE ×2 (10:30→17:22)
[2022-05-04] MEDS: ALBUTEROL/IPRATROPIUM 3 ML NEB RESP TX SCH ×4 (00:40→18:54)
[2022-05-04] MEDS: INSULIN GLARGINE 100 UNIT/ML SUBCUT SCH ×2 (01:26→21:59)
[2022-05-04] MEDS: INSULIN LISPRO 100 UNIT/ML SUBCUT SCH ×6 (01:26→21:58)
[2022-05-04] MEDS: MEROPENEM 500 MG in SODIUM CHLORIDE 0.9% 100 ML IV SCH ×3 (02:16→18:36)
[2022-05-04 05:36] LABS: ABG HCO3 20.3 MMOL/L (20-26); ABG Oxygen Saturation 98.7 % (95-100); ABG PCO2 27.1 MM HG (35-48); ABG PH 7.435 (7.35-7.45); ABG TCO2 16.6 MMOL/L (23-27)
[2022-05-04 05:38] LABS: Basophils # 0.2 10*3/uL (0.0-0.2); Basophils % 0.9 % (0.0-0.8); Eosinophils # 0.1 10*3/uL (0.0-0.87); Eosinophils % 0.3 % (0.00-10.9); Hematocrit 27.3 VOL% (42.0-52.0); Hemoglobin 8.1 GM/DL (14.0-18.0); Immature Granulocytes % 13.1 %; Immature Granulocytes Absolute 2.77 #; Lymphocytes # 1.3 10*3/uL (1.4-4.0); Mean Corpuscular HGB Conc 29.7 GM/DL (32-36); Mean Corpuscular Volume 89.5 FL (87-102); Mean Platelet Volume 11.1 FL (9.6-12.0); Monocytes # 1.2 10*3/uL (0.11-0.8); Monocytes % 5.8 % (1.7-12.7); NRBC # 0.06 10*3/uL; Neutrophils % 73.9 % (38.7-73.9); Platelet Count 451 T/CUMM (130-400); Red Blood Count 3.05 MC/CUMM (3.8-5.5); Red Cell Distribution Width 18.6 % (9.3-17.3); White Blood Count 21.1 T/CUMM (4-12)
[2022-05-04] MEDS: hydrALAZINE 20 MG/1 ML VIAL IV PRN ×2 (06:31→09:30)
[2022-05-04 06:36] LABS: Lymphocytes 11 % (20-55); Total Cells Counted 100
[2022-05-04 06:37] LABS: Anisocytosis 2+; Platelet Estimate Normal
[2022-05-04 06:42] LABS: Calcium 8.5 MG/DL (8.5-10.1); Osmolality,Calculated 331.2 MOS/KG (273-304); Potassium 3.6 MMOL/L (3.5-5.1)
[2022-05-04] MEDS: HEPARIN/NACL 0.9% 2 UNITS/ML 1,000 UNIT/500 ML BAG IV SCH (07:00)
[2022-05-04] MEDS: SODIUM CHLORIDE 0.45% 1,000 ML IV SCH ×2 (08:30→18:50)
[2022-05-04] MEDS: ASPIRIN CHEW 81 MG TABLET PO SCH (09:57)
[2022-05-04] MEDS: CLOPIDOGREL 75 MG TABLET PO SCH (09:57)
[2022-05-04] MEDS: PANTOPRAZOLE 40 MG VIAL IV SCH (09:57)
[2022-05-04] MEDS: MORPHINE 2 MG/1 ML SYRINGE IV PRN ×3 (10:04→22:20)
[2022-05-04] MEDS: LABETALOL 20 MG/4 ML SYRINGE IV PRN (10:04)
[2022-05-04] MEDS ORDERED: MORPHINE 2 MG/1 ML SYRINGE IV ONE (12:22)
[2022-05-04] MEDS ORDERED: FUROSEMIDE 40 MG/4 ML VIAL ONE (12:24)
[2022-05-04] MEDS ORDERED: FUROSEMIDE 40 MG/4 ML VIAL IV ONE ×2 (12:25→19:00)
[2022-05-04 18:15] LABS: Calcium 8.5 MG/DL (8.5-10.1); Osmolality,Calculated 324.6 MOS/KG (273-304); Potassium 3.3 MMOL/L (3.5-5.1)
[2022-05-04] MEDS: POTASSIUM CHLORIDE RIDER 10 MEQ/100 ML PREMIX IV SCH ×4 (19:03→22:28)
[2022-05-04] MEDS ORDERED: DIAZEPAM 10 MG/2 ML SYRINGE IV ONE (23:00)
[2022-05-05] MEDS: ALBUTEROL/IPRATROPIUM 3 ML NEB RESP TX SCH ×4 (00:24→19:01)
[2022-05-05 00:30] LABS: Arterial Base Excess iSTAT -3 MMOL/L (-2.5-2.5); Arterial Bicarbonate iSTAT 20.1 MMOL/L (20-26); Arterial O2 Saturation iSTAT 99 % (95-100); Arterial PCO2 iSTAT 30 MM HG (35-48); Arterial PO2 iSTAT 157 MM HG (80-95); Arterial Total CO2 iSTAT 21 MMO/L (23-27); Arterial pH iSTAT 7.435 (7.35-7.45)
[2022-05-05] MEDS: INSULIN LISPRO 100 UNIT/ML SUBCUT SCH ×6 (01:00→20:18)
[2022-05-05] MEDS: MEROPENEM 500 MG in SODIUM CHLORIDE 0.9% 100 ML IV SCH ×3 (02:27→18:29)
[2022-05-05 05:29] LABS: Basophils # 0.2 10*3/uL (0.0-0.2); Basophils % 0.7 % (0.0-0.8); Hemoglobin 9.4 GM/DL (14.0-18.0); Immature Granulocytes % 7.1 %; Immature Granulocytes Absolute 1.71 #; Lymphocytes # 0.9 10*3/uL (1.4-4.0); Lymphocytes % 3.7 % (21.2-54.2); Mean Corpuscular HGB Conc 29.4 GM/DL (32-36); Mean Corpuscular Volume 89.9 FL (87-102); Monocytes # 1.6 10*3/uL (0.11-0.8); Monocytes % 6.6 % (1.7-12.7); NRBC # 0.12 10*3/uL; Neutrophils % 81.9 % (38.7-73.9); Platelet Count 612 T/CUMM (130-400); Red Blood Count 3.56 MC/CUMM (3.8-5.5); Red Cell Distribution Width 18.4 % (9.3-17.3); White Blood Count 24.1 T/CUMM (4-12)
[2022-05-05 05:41] LABS: Albumin 1.4 G/DL (3.4-5.0); Bilirubin,Total 0.8 MG/DL (0.20-1.00); Calcium 9.1 MG/DL (8.5-10.1); Osmolality,Calculated 335.9 MOS/KG (273-304); Total Protein 7.3 G/DL (6.4-8.2)
[2022-05-05] MEDS ORDERED: MORPHINE 2 MG/1 ML SYRINGE IV ONE (07:28)
[2022-05-05 07:37] LABS: Lymphocytes 14 % (20-55); Metamyelocytes 2 %; Myelocytes 2 %; Platelet Estimate Increased; Total Cells Counted 100
[2022-05-05] MEDS: HEPARIN/NACL 0.9% 2 UNITS/ML 1,000 UNIT/500 ML BAG IV SCH (08:15)
[2022-05-05 09:00] LABS: Anisocytosis 1+; Hypochromia 1+; Microcytosis Slight; Polychromasia Slight
[2022-05-05] MEDS: PANTOPRAZOLE 40 MG VIAL IV SCH (09:32)
[2022-05-05] MEDS: CLOPIDOGREL 75 MG TABLET PO SCH ×2 (09:55→15:26)
[2022-05-05] MEDS: ASPIRIN CHEW 81 MG TABLET PO SCH ×2 (09:55→15:26)
[2022-05-05] MEDS ORDERED: ETOMIDATE 20 MG/10 ML VIAL IV ONE ×2 (10:18)
[2022-05-05] MEDS ORDERED: SUCCINYLCHOLINE 200 MG/10 ML VIAL IV ONE (10:18)
[2022-05-05] MEDS ORDERED: SUCCINYLCHOLINE 200 MG/10 ML VIAL ONE (10:18)
[2022-05-05] MEDS ORDERED: ENOXAPARIN 40 MG/0.4 ML SYRINGE SUBCUT SCH (11:00)
[2022-05-05] MEDS ORDERED: MIDAZOLAM 2 MG/2 ML VIAL ONE (11:01)
[2022-05-05] MEDS ORDERED: MIDAZOLAM 2 MG/2 ML VIAL IV ONE (11:02)
[2022-05-05] MEDS ORDERED: NOREPINEPHRINE 8 MG in SODIUM CHLORIDE 0.9% 242 ML IV PRN (11:09)
[2022-05-05] MEDS ORDERED: NOREPINEPHRINE 4 MG/4 ML VIAL IV ONE (11:09)
[2022-05-05] MEDS: MIDAZOLAM 100 MG in SODIUM CHLORIDE 0.9% 80 ML IV PRN ×2 (11:13→20:48)
[2022-05-05 11:19] LABS: Arterial Base Excess iSTAT -7 MMOL/L (-2.5-2.5); Arterial Bicarbonate iSTAT 19.6 MMOL/L (20-26); Arterial O2 Saturation iSTAT 92 % (95-100); Arterial PCO2 iSTAT 41 MM HG (35-48); Arterial PO2 iSTAT 72 MM HG (80-95); Arterial Total CO2 iSTAT 21 MMO/L (23-27); Arterial pH iSTAT 7.287 (7.35-7.45)
[2022-05-05] MEDS ORDERED: LACTATED RINGERS 500 ML IV ONE ×2 (11:23→12:28)
[2022-05-05] MEDS: fentaNYL INJ 1,250 MCG in SODIUM CHLORIDE 0.9% 225 ML IV PRN ×4 (11:25→20:48)
[2022-05-05] MEDS ORDERED: DEXTROSE 5% 1,000 ML IV SCH (11:30)
[2022-05-05 12:52] LABS: Arterial Base Excess iSTAT -6 MMOL/L (-2.5-2.5); Arterial O2 Saturation iSTAT 100 % (95-100); Arterial PCO2 iSTAT 38 MM HG (35-48); Arterial PO2 iSTAT 210 MM HG (80-95); Arterial Total CO2 iSTAT 21 MMO/L (23-27); Arterial pH iSTAT 7.324 (7.35-7.45)
[2022-05-05] MEDS ORDERED: SODIUM CHLORIDE 0.45% 1,000 ML IV SCH (13:00)
[2022-05-05 17:16] LABS: Calcium 8.7 MG/DL (8.5-10.1); Osmolality,Calculated 336.2 MOS/KG (273-304); Potassium 4.6 MMOL/L (3.5-5.1)
[2022-05-05] MEDS: ALBUMIN 5% 25 GM/500 ML VIAL IV SCH (17:27)
[2022-05-05] MEDS: SALIVA SUBSTITUTE SPRAY 60 ML CAN SWISH/SPIT PRN (17:29)
[2022-05-05] MEDS: NOREPINEPHRINE 16 MG in SODIUM CHLORIDE 0.9% 234 ML IV PRN (18:58)
[2022-05-05] MEDS: INSULIN GLARGINE 100 UNIT/ML SUBCUT SCH (20:21)
[2022-05-05 20:43] LABS: Potassium 4.7 MMOL/L (3.5-5.1)
[2022-05-05] MEDS: fentaNYL INJ 2,500 MCG in SODIUM CHLORIDE 0.9% 75 ML IV PRN (23:53)
[2022-05-06] MEDS: ALBUTEROL/IPRATROPIUM 3 ML NEB RESP TX SCH ×4 (00:06→19:07)
[2022-05-06] MEDS: INSULIN LISPRO 100 UNIT/ML SUBCUT SCH ×7 (00:11→23:39)
[2022-05-06 00:30] LABS: Calcium 7.8 MG/DL (8.5-10.1); Osmolality,Calculated 337.3 MOS/KG (273-304); Potassium 4.6 MMOL/L (3.5-5.1)
[2022-05-06 01:26] LABS: Albumin 1.6 G/DL (3.4-5.0); Bilirubin,Total 0.7 MG/DL (0.20-1.00); Calcium 8.1 MG/DL (8.5-10.1); Osmolality,Calculated 334.4 MOS/KG (273-304); Potassium 4.6 MMOL/L (3.5-5.1); Total Protein 6.2 G/DL (6.4-8.2)
[2022-05-06] MEDS: ALBUMIN 5% 25 GM/500 ML VIAL IV SCH ×2 (01:46→09:46)
[2022-05-06] MEDS: MEROPENEM 500 MG in SODIUM CHLORIDE 0.9% 100 ML IV SCH ×3 (01:48→17:52)
[2022-05-06 03:40] LABS: Arterial Base Excess iSTAT -7 MMOL/L (-2.5-2.5); Arterial Bicarbonate iSTAT 19.1 MMOL/L (20-26); Arterial O2 Saturation iSTAT 99 % (95-100); Arterial PCO2 iSTAT 40 MM HG (35-48); Arterial PO2 iSTAT 156 MM HG (80-95); Arterial Total CO2 iSTAT 20 MMO/L (23-27); Arterial pH iSTAT 7.286 (7.35-7.45)
[2022-05-06 04:08] LABS: Basophils # 0.1 10*3/uL (0.0-0.2); Basophils % 0.3 % (0.0-0.8); Eosinophils # 0.1 10*3/uL (0.0-0.87); Eosinophils % 0.5 % (0.00-10.9); Hematocrit 23.7 VOL% (42.0-52.0); Hemoglobin 6.8 GM/DL (14.0-18.0); Immature Granulocytes % 5.4 %; Immature Granulocytes Absolute 1.42 #; Lymphocytes # 1.7 10*3/uL (1.4-4.0); Lymphocytes % 6.6 % (21.2-54.2); Mean Corpuscular HGB Conc 28.7 GM/DL (32-36); Mean Corpuscular Volume 95.6 FL (87-102); Mean Platelet Volume 11.3 FL (9.6-12.0); Monocytes # 1.5 10*3/uL (0.11-0.8); Monocytes % 5.7 % (1.7-12.7); NRBC # 0.27 10*3/uL; Neutrophils % 81.5 % (38.7-73.9); Platelet Count 544 T/CUMM (130-400); Red Blood Count 2.48 MC/CUMM (3.8-5.5); Red Cell Distribution Width 18.8 % (9.3-17.3); White Blood Count 26.3 T/CUMM (4-12)
[2022-05-06 04:34] LABS: Band Neutrophils 4 % (0-10); Eosinophils 1 % (0-10); Hypochromia Slight; Lymphocytes 5 % (20-55); Microcytosis Slight; Nucleated Red Blood Cells 2 /100 WBC (0-5); Platelet Estimate Adequate; Total Cells Counted 100
[2022-05-06] MEDS ORDERED: SODIUM CHLORIDE 0.9% 1,000 ML IV PRN (04:44)
[2022-05-06] MEDS: NOREPINEPHRINE 16 MG in SODIUM CHLORIDE 0.9% 234 ML IV PRN ×2 (05:46→20:33)
[2022-05-06] MEDS: fentaNYL INJ 2,500 MCG in SODIUM CHLORIDE 0.9% 75 ML IV PRN ×2 (07:08→15:52)
[2022-05-06 07:13] LABS: Bilirubin,Total 0.7 MG/DL (0.20-1.00); Calcium 8.2 MG/DL (8.5-10.1); Osmolality,Calculated 333.6 MOS/KG (273-304); Potassium 4.5 MMOL/L (3.5-5.1); Total Protein 6.2 G/DL (6.4-8.2)
[2022-05-06] MEDS: ASPIRIN CHEW 81 MG TABLET PO SCH (09:37)
[2022-05-06] MEDS: CLOPIDOGREL 75 MG TABLET PO SCH (09:37)
[2022-05-06] MEDS: PANTOPRAZOLE 40 MG VIAL IV SCH (09:42)
[2022-05-06] MEDS: ACETAMINOPHEN 325 MG/10.15 ML UDCUP PO PRN ×2 (13:30→19:16)
[2022-05-06] MEDS: MIDAZOLAM 100 MG in SODIUM CHLORIDE 0.9% 80 ML IV PRN (13:35)
[2022-05-06] MEDS ORDERED: VANCOMYCIN INJ 1,500 MG in SODIUM CHLORIDE 0.9% 500 ML IV PRN (13:51)
[2022-05-06 14:55] LABS: Hematocrit 25.1 VOL% (42.0-52.0); Hemoglobin 7.3 GM/DL (14.0-18.0)
[2022-05-06] MEDS ORDERED: VANCOMYCIN INJ 1,500 MG in SODIUM CHLORIDE 0.9% 500 ML IV ONE (15:00)
[2022-05-06] MEDS: INSULIN GLARGINE 100 UNIT/ML SUBCUT SCH (20:38)
[2022-05-06] MEDS: ENOXAPARIN 30 MG/0.3 ML SYRINGE SUBCUT SCH (20:39)
[2022-05-06 23:47] LABS: Calcium 8.5 MG/DL (8.5-10.1); Osmolality,Calculated 330.3 MOS/KG (273-304); Potassium 4.4 MMOL/L (3.5-5.1)
[2022-05-07] MEDS: ALBUTEROL/IPRATROPIUM 3 ML NEB RESP TX SCH ×4 (00:08→19:30)
[2022-05-07 00:15] LABS: Calcium 8.4 MG/DL (8.5-10.1); Osmolality,Calculated 330.4 MOS/KG (273-304); Potassium 4.6 MMOL/L (3.5-5.1)
[2022-05-07] MEDS: MEROPENEM 500 MG in SODIUM CHLORIDE 0.9% 100 ML IV SCH ×3 (02:09→17:40)
[2022-05-07 03:45] LABS: Arterial Base Excess iSTAT -8 MMOL/L (-2.5-2.5); Arterial Bicarbonate iSTAT 18.5 MMOL/L (20-26); Arterial O2 Saturation iSTAT 98 % (95-100); Arterial PCO2 iSTAT 39 MM HG (35-48); Arterial PO2 iSTAT 120 MM HG (80-95); Arterial Total CO2 iSTAT 20 MMO/L (23-27); Arterial pH iSTAT 7.283 (7.35-7.45)
[2022-05-07 04:29] LABS: Basophils # 0.1 10*3/uL (0.0-0.2); Basophils % 0.4 % (0.0-0.8); Eosinophils # 0.5 10*3/uL (0.0-0.87); Eosinophils % 1.9 % (0.00-10.9); Hemoglobin 7.6 GM/DL (14.0-18.0); Immature Granulocytes % 5.1 %; Immature Granulocytes Absolute 1.29 #; Lymphocytes # 1.2 10*3/uL (1.4-4.0); Lymphocytes % 4.8 % (21.2-54.2); Mean Corpuscular HGB Conc 29.2 GM/DL (32-36); Mean Corpuscular Volume 94.9 FL (87-102); Mean Platelet Volume 11.3 FL (9.6-12.0); Monocytes % 4.1 % (1.7-12.7); NRBC # 0.08 10*3/uL; Neutrophils % 83.7 % (38.7-73.9); Platelet Count 518 T/CUMM (130-400); Red Blood Count 2.74 MC/CUMM (3.8-5.5); Red Cell Distribution Width 18.8 % (9.3-17.3); White Blood Count 25.5 T/CUMM (4-12)
[2022-05-07] MEDS: INSULIN LISPRO 100 UNIT/ML SUBCUT SCH ×5 (04:30→21:22)
[2022-05-07 04:57] LABS: Albumin 1.7 G/DL (3.4-5.0); Bilirubin,Total 1.1 MG/DL (0.20-1.00); Calcium 8.5 MG/DL (8.5-10.1); Osmolality,Calculated 326.6 MOS/KG (273-304); Potassium 4.4 MMOL/L (3.5-5.1)
[2022-05-07 05:03] LABS: Band Neutrophils 3 % (0-10); Eosinophils 2 % (0-10); Lymphocytes 3 % (20-55); Platelet Estimate Adequate; Total Cells Counted 100
[2022-05-07 05:04] LABS: Hypochromia Slight
[2022-05-07] MEDS: fentaNYL INJ 2,500 MCG in SODIUM CHLORIDE 0.9% 75 ML IV PRN (05:40)
[2022-05-07] MEDS: PANTOPRAZOLE 40 MG VIAL IV SCH (08:25)
[2022-05-07] MEDS: CLOPIDOGREL 75 MG TABLET PO SCH (08:25)
[2022-05-07] MEDS: ASPIRIN CHEW 81 MG TABLET PO SCH (08:25)
[2022-05-07] MEDS: MICAFUNGIN 100 MG in SODIUM CHLORIDE 0.9% 100 ML IV SCH (10:10)
[2022-05-07] MEDS ORDERED: INSULIN LISPRO 100 UNIT/ML SUBCUT SCH (11:30)
[2022-05-07] MEDS: INSULIN GLARGINE 100 UNIT/ML SUBCUT SCH (21:24)
[2022-05-07] MEDS: ENOXAPARIN 30 MG/0.3 ML SYRINGE SUBCUT SCH (21:24)
[2022-05-08] MEDS: ALBUTEROL/IPRATROPIUM 3 ML NEB RESP TX SCH ×4 (00:20→19:26)
[2022-05-08] MEDS: INSULIN LISPRO 100 UNIT/ML SUBCUT SCH ×6 (01:31→20:45)
[2022-05-08 02:40] LABS: Arterial Base Excess iSTAT -6 MMOL/L (-2.5-2.5); Arterial Bicarbonate iSTAT 18.8 MMOL/L (20-26); Arterial O2 Saturation iSTAT 99 % (95-100); Arterial PCO2 iSTAT 34 MM HG (35-48); Arterial PO2 iSTAT 122 MM HG (80-95); Arterial Total CO2 iSTAT 20 MMO/L (23-27); Arterial pH iSTAT 7.347 (7.35-7.45)
[2022-05-08] MEDS: MEROPENEM 500 MG in SODIUM CHLORIDE 0.9% 100 ML IV SCH ×3 (04:34→18:38)
[2022-05-08 05:26] LABS: Basophils # 0.1 10*3/uL (0.0-0.2); Basophils % 0.3 % (0.0-0.8); Eosinophils # 0.4 10*3/uL (0.0-0.87); Eosinophils % 1.7 % (0.00-10.9); Hematocrit 25.5 VOL% (42.0-52.0); Hemoglobin 7.4 GM/DL (14.0-18.0); Immature Granulocytes % 4.9 %; Lymphocytes # 1.1 10*3/uL (1.4-4.0); Lymphocytes % 4.5 % (21.2-54.2); Mean Corpuscular Volume 93.8 FL (87-102); Mean Platelet Volume 11.6 FL (9.6-12.0); Monocytes # 1.4 10*3/uL (0.11-0.8); Monocytes % 5.8 % (1.7-12.7); NRBC # 0.05 10*3/uL; Neutrophils % 82.8 % (38.7-73.9); Platelet Count 558 T/CUMM (130-400); Red Blood Count 2.72 MC/CUMM (3.8-5.5); Red Cell Distribution Width 18.4 % (9.3-17.3); White Blood Count 24.7 T/CUMM (4-12)
[2022-05-08 05:43] LABS: Albumin 1.4 G/DL (3.4-5.0); Bilirubin,Total 0.9 MG/DL (0.20-1.00); Calcium 8.8 MG/DL (8.5-10.1); Osmolality,Calculated 326.4 MOS/KG (273-304); Potassium 4.1 MMOL/L (3.5-5.1); Total Protein 6.2 G/DL (6.4-8.2)
[2022-05-08 05:45] LABS: Eosinophils 1 % (0-10); Hypochromia Slight; Lymphocytes 6 % (20-55); Platelet Estimate Adequate; Total Cells Counted 100
[2022-05-08] MEDS: fentaNYL INJ 1,250 MCG in SODIUM CHLORIDE 0.9% 225 ML IV PRN ×2 (08:33→18:45)
[2022-05-08] MEDS ORDERED: VANCOMYCIN INJ 1,500 MG in SODIUM CHLORIDE 0.9% 500 ML IV ONE (09:00)
[2022-05-08] MEDS: POLYETHYLENE GLYCOL POWDER 17 GM PACK PER TUBE SCH (09:12)
[2022-05-08] MEDS: ASPIRIN CHEW 81 MG TABLET PO SCH (09:12)
[2022-05-08] MEDS: CLOPIDOGREL 75 MG TABLET PO SCH (09:12)
[2022-05-08] MEDS: PANTOPRAZOLE 40 MG VIAL IV SCH (09:12)
[2022-05-08] MEDS: MICAFUNGIN 100 MG in SODIUM CHLORIDE 0.9% 100 ML IV SCH (09:27)
[2022-05-08] MEDS: MORPHINE 2 MG/1 ML SYRINGE IV PRN (16:00)
[2022-05-08] MEDS: MIDAZOLAM 100 MG in SODIUM CHLORIDE 0.9% 80 ML IV PRN (20:10)
[2022-05-08] MEDS: ENOXAPARIN 40 MG/0.4 ML SYRINGE SUBCUT SCH (20:44)
[2022-05-08] MEDS: INSULIN GLARGINE 100 UNIT/ML SUBCUT SCH (20:45)
[2022-05-09] MEDS: INSULIN LISPRO 100 UNIT/ML SUBCUT SCH ×6 (00:53→21:03)
[2022-05-09] MEDS: MEROPENEM 500 MG in SODIUM CHLORIDE 0.9% 100 ML IV SCH ×3 (01:33→17:45)
[2022-05-09] MEDS: ALBUTEROL/IPRATROPIUM 3 ML NEB RESP TX SCH ×6 (01:51→23:40)
[2022-05-09] MEDS: fentaNYL INJ 1,250 MCG in SODIUM CHLORIDE 0.9% 225 ML IV PRN (02:16)
[2022-05-09 05:04] LABS: Arterial Base Excess iSTAT -7 MMOL/L (-2.5-2.5); Arterial Bicarbonate iSTAT 19.3 MMOL/L (20-26); Arterial O2 Saturation iSTAT 93 % (95-100); Arterial PCO2 iSTAT 41 MM HG (35-48); Arterial PO2 iSTAT 77 MM HG (80-95); Arterial Total CO2 iSTAT 21 MMO/L (23-27)
[2022-05-09 05:43] LABS: Basophils # 0.2 10*3/uL (0.0-0.2); Basophils % 0.5 % (0.0-0.8); Eosinophils # 0.5 10*3/uL (0.0-0.87); Eosinophils % 1.8 % (0.00-10.9); Hematocrit 27.6 VOL% (42.0-52.0); Hemoglobin 8.2 GM/DL (14.0-18.0); Immature Granulocytes Absolute 2.05 #; Lymphocytes % 3.4 % (21.2-54.2); Mean Corpuscular HGB Conc 29.7 GM/DL (32-36); Mean Corpuscular Volume 92.3 FL (87-102); Mean Platelet Volume 11.5 FL (9.6-12.0); Monocytes # 1.8 10*3/uL (0.11-0.8); Monocytes % 6.3 % (1.7-12.7); NRBC # 0.09 10*3/uL; Platelet Count 620 T/CUMM (130-400); Red Blood Count 2.99 MC/CUMM (3.8-5.5); Red Cell Distribution Width 18.5 % (9.3-17.3); White Blood Count 29.3 T/CUMM (4-12)
[2022-05-09 05:56] LABS: Phosphorous 4.2 MG/DL (2.5-4.9)
[2022-05-09 06:01] LABS: Albumin 1.3 G/DL (3.4-5.0); Bilirubin,Total 0.9 MG/DL (0.20-1.00); Calcium 8.8 MG/DL (8.5-10.1); Osmolality,Calculated 314.4 MOS/KG (273-304); Potassium 4.3 MMOL/L (3.5-5.1); Total Protein 6.8 G/DL (6.4-8.2)
[2022-05-09 06:04] LABS: Eosinophils 1 % (0-10); Hypochromia Slight; Lymphocytes 1 % (20-55); Microcytosis Slight; Platelet Estimate Increased; Total Cells Counted 100
[2022-05-09] MEDS: ASPIRIN CHEW 81 MG TABLET PO SCH (09:50)
[2022-05-09] MEDS: CLOPIDOGREL 75 MG TABLET PO SCH (09:50)
[2022-05-09] MEDS: PANTOPRAZOLE 40 MG VIAL IV SCH (09:52)
[2022-05-09] MEDS: POLYETHYLENE GLYCOL POWDER 17 GM PACK PER TUBE SCH (09:53)
[2022-05-09] MEDS: MICAFUNGIN 100 MG in SODIUM CHLORIDE 0.9% 100 ML IV SCH (10:02)
[2022-05-09] MEDS: SODIUM BICARB INJ 100 MEQ in STERILE WATER INJ 1,000 ML IV SCH (16:33)
[2022-05-09] MEDS: hydrALAZINE 20 MG/1 ML VIAL IV PRN (19:27)
[2022-05-09] MEDS: ENOXAPARIN 40 MG/0.4 ML SYRINGE SUBCUT SCH (21:03)
[2022-05-09] MEDS: INSULIN GLARGINE 100 UNIT/ML SUBCUT SCH (21:04)
[2022-05-10] MEDS: INSULIN LISPRO 100 UNIT/ML SUBCUT SCH ×6 (00:36→20:52)
[2022-05-10] MEDS: MEROPENEM 500 MG in SODIUM CHLORIDE 0.9% 100 ML IV SCH ×3 (02:48→18:10)
[2022-05-10] MEDS: ALBUTEROL/IPRATROPIUM 3 ML NEB RESP TX SCH ×6 (03:30→23:52)
[2022-05-10 04:21] LABS: Basophils # 0.2 10*3/uL (0.0-0.2); Basophils % 0.7 % (0.0-0.8); Eosinophils # 0.1 10*3/uL (0.0-0.87); Eosinophils % 0.6 % (0.00-10.9); Hematocrit 27.5 VOL% (42.0-52.0); Hemoglobin 7.9 GM/DL (14.0-18.0); Immature Granulocytes % 8.4 %; Immature Granulocytes Absolute 1.98 #; Lymphocytes # 0.9 10*3/uL (1.4-4.0); Lymphocytes % 3.7 % (21.2-54.2); Mean Corpuscular HGB Conc 28.7 GM/DL (32-36); Mean Corpuscular Volume 93.9 FL (87-102); Mean Platelet Volume 11.9 FL (9.6-12.0); Monocytes # 1.5 10*3/uL (0.11-0.8); Monocytes % 6.3 % (1.7-12.7); Neutrophils % 80.3 % (38.7-73.9); Platelet Count 557 T/CUMM (130-400); Red Blood Count 2.93 MC/CUMM (3.8-5.5); Red Cell Distribution Width 17.9 % (9.3-17.3); White Blood Count 23.6 T/CUMM (4-12)
[2022-05-10 04:40] LABS: Albumin 1.1 G/DL (3.4-5.0); Bilirubin,Total 0.8 MG/DL (0.20-1.00); Calcium 8.4 MG/DL (8.5-10.1); Osmolality,Calculated 317.3 MOS/KG (273-304); Potassium 4.5 MMOL/L (3.5-5.1); Total Protein 6.5 G/DL (6.4-8.2)
[2022-05-10 05:12] LABS: Anisocytosis 1+; Band Neutrophils 17 % (0-10); Eosinophils 3 % (0-10); Lymphocytes 3 % (20-55); Macrocytosis Slight; Metamyelocytes 4 %; Myelocytes 3 %; Platelet Estimate Increased; Total Cells Counted 100
[2022-05-10 05:31] LABS: Arterial Base Excess iSTAT -4 MMOL/L (-2.5-2.5); Arterial Bicarbonate iSTAT 22.2 MMOL/L (20-26); Arterial O2 Saturation iSTAT 99 % (95-100); Arterial PCO2 iSTAT 43 MM HG (35-48); Arterial PO2 iSTAT 140 MM HG (80-95); Arterial Total CO2 iSTAT 23 MMO/L (23-27); Arterial pH iSTAT 7.323 (7.35-7.45)
[2022-05-10] MEDS: SODIUM BICARB INJ 100 MEQ in STERILE WATER INJ 1,000 ML IV SCH ×2 (06:40→21:11)
[2022-05-10] MEDS: PANTOPRAZOLE 40 MG VIAL IV SCH (09:35)
[2022-05-10] MEDS: MICAFUNGIN 100 MG in SODIUM CHLORIDE 0.9% 100 ML IV SCH (09:40)
[2022-05-10] MEDS: CLOPIDOGREL 75 MG TABLET PO SCH (09:40)
[2022-05-10] MEDS: ASPIRIN CHEW 81 MG TABLET PO SCH (09:40)
[2022-05-10] MEDS: POLYETHYLENE GLYCOL POWDER 17 GM PACK PER TUBE SCH (09:40)
[2022-05-10] MEDS: DORNASE ALFA 2.5 MG/2.5 ML VIAL RESP TX SCH ×2 (11:40→19:10)
[2022-05-10] MEDS: MORPHINE 2 MG/1 ML SYRINGE IV PRN ×2 (14:20→20:57)
[2022-05-10] MEDS ORDERED: MORPHINE 2 MG/1 ML SYRINGE ONE (14:20)
[2022-05-10] MEDS: INSULIN GLARGINE 100 UNIT/ML SUBCUT SCH (20:52)
[2022-05-10] MEDS: ENOXAPARIN 40 MG/0.4 ML SYRINGE SUBCUT SCH (21:03)
[2022-05-11] MEDS: INSULIN LISPRO 100 UNIT/ML SUBCUT SCH ×6 (00:38→20:59)
[2022-05-11] MEDS: MEROPENEM 500 MG in SODIUM CHLORIDE 0.9% 100 ML IV SCH ×4 (01:43→20:56)
[2022-05-11] MEDS: ALBUTEROL/IPRATROPIUM 3 ML NEB RESP TX SCH ×6 (03:52→22:10)
[2022-05-11 04:17] LABS: Arterial Base Excess iSTAT 2 MMOL/L (-2.5-2.5); Arterial O2 Saturation iSTAT 100 % (95-100); Arterial PCO2 iSTAT 34 MM HG (35-48); Arterial PO2 iSTAT 162 MM HG (80-95); Arterial Total CO2 iSTAT 26 MMO/L (23-27); Arterial pH iSTAT 7.472 (7.35-7.45)
[2022-05-11 05:30] LABS: Basophils # 0.1 10*3/uL (0.0-0.2); Basophils % 0.4 % (0.0-0.8); Eosinophils # 0.3 10*3/uL (0.0-0.87); Eosinophils % 1.2 % (0.00-10.9); Hematocrit 24.4 VOL% (42.0-52.0); Hemoglobin 7.5 GM/DL (14.0-18.0); Immature Granulocytes % 10.2 %; Immature Granulocytes Absolute 2.26 #; Lymphocytes # 1.3 10*3/uL (1.4-4.0); Mean Corpuscular HGB Conc 30.7 GM/DL (32-36); Mean Corpuscular Volume 89.1 FL (87-102); Mean Platelet Volume 11.7 FL (9.6-12.0); Monocytes # 1.6 10*3/uL (0.11-0.8); Monocytes % 7.2 % (1.7-12.7); NRBC # 0.25 10*3/uL; Platelet Count 604 T/CUMM (130-400); Red Blood Count 2.74 MC/CUMM (3.8-5.5); Red Cell Distribution Width 17.7 % (9.3-17.3); White Blood Count 22.2 T/CUMM (4-12)
[2022-05-11 05:49] LABS: Band Neutrophils 1 % (0-10); Eosinophils 3 % (0-10); Hypochromia Slight; Lymphocytes 9 % (20-55); Microcytosis Slight; Nucleated Red Blood Cells 2 /100 WBC (0-5); Platelet Estimate Adequate; Total Cells Counted 100
[2022-05-11 05:53] LABS: Albumin 1.1 G/DL (3.4-5.0); Bilirubin,Total 0.6 MG/DL (0.20-1.00); Calcium 8.1 MG/DL (8.5-10.1); Potassium 4.3 MMOL/L (3.5-5.1); Total Protein 6.2 G/DL (6.4-8.2)
[2022-05-11] MEDS: MORPHINE 2 MG/1 ML SYRINGE IV PRN ×2 (06:19→12:55)
[2022-05-11] MEDS: DORNASE ALFA 2.5 MG/2.5 ML VIAL RESP TX SCH ×2 (07:42→19:26)
[2022-05-11] MEDS: methylPREDNISolone SOD SUC 40 MG/1 ML VIAL IV SCH ×2 (08:50→20:40)
[2022-05-11] MEDS: PANTOPRAZOLE 40 MG VIAL IV SCH (08:50)
[2022-05-11] MEDS: ASPIRIN CHEW 81 MG TABLET PO SCH (08:55)
[2022-05-11] MEDS: POLYETHYLENE GLYCOL POWDER 17 GM PACK PER TUBE SCH (08:55)
[2022-05-11] MEDS: CLOPIDOGREL 75 MG TABLET PO SCH (08:55)
[2022-05-11] MEDS: MICAFUNGIN 100 MG in SODIUM CHLORIDE 0.9% 100 ML IV SCH (10:00)
[2022-05-11] MEDS: SODIUM BICARB INJ 100 MEQ in STERILE WATER INJ 1,000 ML IV SCH (13:50)
[2022-05-11] MEDS: INSULIN GLARGINE 100 UNIT/ML SUBCUT SCH (20:54)
[2022-05-11] MEDS: ENOXAPARIN 40 MG/0.4 ML SYRINGE SUBCUT SCH (20:55)
[2022-05-12] MEDS: INSULIN LISPRO 100 UNIT/ML SUBCUT SCH ×5 (00:40→17:11)
[2022-05-12] MEDS: ALBUTEROL/IPRATROPIUM 3 ML NEB RESP TX SCH ×6 (01:54→22:25)
[2022-05-12] MEDS: MORPHINE 2 MG/1 ML SYRINGE IV PRN ×2 (02:22→17:12)
[2022-05-12 02:29] LABS: ABG Base Excess 2.6 MMOL/L (-2.5-2.5); ABG HCO3 26.7 MMOL/L (20-26); ABG Oxygen Saturation 98.1 % (95-100); ABG PCO2 41.3 MM HG (35-48); ABG PH 7.425 (7.35-7.45); ABG TCO2 25.6 MMOL/L (23-27)
[2022-05-12] MEDS: MEROPENEM 500 MG in SODIUM CHLORIDE 0.9% 100 ML IV SCH ×4 (03:58→21:40)
[2022-05-12 04:53] LABS: Basophils # 0.1 10*3/uL (0.0-0.2); Basophils % 0.4 % (0.0-0.8); Eosinophils # 0.1 10*3/uL (0.0-0.87); Eosinophils % 0.2 % (0.00-10.9); Hematocrit 24.9 VOL% (42.0-52.0); Hemoglobin 7.5 GM/DL (14.0-18.0); Immature Granulocytes % 8.3 %; Immature Granulocytes Absolute 2.13 #; Lymphocytes # 1.3 10*3/uL (1.4-4.0); Mean Corpuscular HGB Conc 30.1 GM/DL (32-36); Mean Corpuscular Volume 90.9 FL (87-102); Mean Platelet Volume 11.8 FL (9.6-12.0); Monocytes # 1.8 10*3/uL (0.11-0.8); Monocytes % 6.9 % (1.7-12.7); NRBC # 0.25 10*3/uL; Neutrophils % 79.2 % (38.7-73.9); Platelet Count 638 T/CUMM (130-400); Red Blood Count 2.74 MC/CUMM (3.8-5.5); Red Cell Distribution Width 17.5 % (9.3-17.3); White Blood Count 25.5 T/CUMM (4-12)
[2022-05-12 05:07] LABS: Calcium 8.3 MG/DL (8.5-10.1); Osmolality,Calculated 309.4 MOS/KG (273-304); Potassium 4.6 MMOL/L (3.5-5.1)
[2022-05-12 06:56] LABS: Hypochromia Slight; Microcytosis Slight; Platelet Estimate Adequate
[2022-05-12] MEDS: DORNASE ALFA 2.5 MG/2.5 ML VIAL RESP TX SCH ×2 (07:37→19:35)
[2022-05-12] MEDS: ASPIRIN CHEW 81 MG TABLET PO SCH (09:21)
[2022-05-12] MEDS: CLOPIDOGREL 75 MG TABLET PO SCH (09:21)
[2022-05-12] MEDS: POLYETHYLENE GLYCOL POWDER 17 GM PACK PER TUBE SCH (09:21)
[2022-05-12] MEDS: PANTOPRAZOLE 40 MG VIAL IV SCH (09:22)
[2022-05-12] MEDS: FUROSEMIDE 40 MG/4 ML VIAL IV SCH (09:27)
[2022-05-12] MEDS: methylPREDNISolone SOD SUC 40 MG/1 ML VIAL IV SCH ×2 (09:28→21:38)
[2022-05-12] MEDS: MICAFUNGIN 100 MG in SODIUM CHLORIDE 0.9% 100 ML IV SCH (10:21)
[2022-05-12] MEDS: ENOXAPARIN 40 MG/0.4 ML SYRINGE SUBCUT SCH (21:42)
[2022-05-12] MEDS: INSULIN GLARGINE 100 UNIT/ML SUBCUT SCH (21:45)
[2022-05-12] MEDS: SALIVA SUBSTITUTE SPRAY 60 ML CAN SWISH/SPIT PRN (22:08)
[2022-05-13] MEDS: INSULIN LISPRO 100 UNIT/ML SUBCUT SCH ×5 (00:05→23:32)
[2022-05-13] MEDS: ALBUTEROL/IPRATROPIUM 3 ML NEB RESP TX SCH ×6 (02:27→22:55)
[2022-05-13 02:28] LABS: Arterial Base Excess iSTAT 6 MMOL/L (-2.5-2.5); Arterial Bicarbonate iSTAT 30.3 MMOL/L (20-26); Arterial O2 Saturation iSTAT 99 % (95-100); Arterial PCO2 iSTAT 40 MM HG (35-48); Arterial PO2 iSTAT 124 MM HG (80-95); Arterial Total CO2 iSTAT 32 MMO/L (23-27); Arterial pH iSTAT 7.489 (7.35-7.45)
[2022-05-13] MEDS: MEROPENEM 500 MG in SODIUM CHLORIDE 0.9% 100 ML IV SCH ×4 (03:40→21:04)
[2022-05-13 04:21] LABS: Basophils # 0.1 10*3/uL (0.0-0.2); Basophils % 0.2 % (0.0-0.8); Hemoglobin 7.2 GM/DL (14.0-18.0); Immature Granulocytes % 6.4 %; Immature Granulocytes Absolute 1.45 #; Lymphocytes # 1.2 10*3/uL (1.4-4.0); Lymphocytes % 5.2 % (21.2-54.2); Mean Corpuscular Volume 90.6 FL (87-102); Mean Platelet Volume 11.6 FL (9.6-12.0); Monocytes # 1.1 10*3/uL (0.11-0.8); Monocytes % 5.1 % (1.7-12.7); NRBC # 0.15 10*3/uL; Neutrophils % 83.1 % (38.7-73.9); Platelet Count 596 T/CUMM (130-400); Red Blood Count 2.65 MC/CUMM (3.8-5.5); Red Cell Distribution Width 17.4 % (9.3-17.3); White Blood Count 22.6 T/CUMM (4-12)
[2022-05-13 04:40] LABS: Phosphorous 4.8 MG/DL (2.5-4.9)
[2022-05-13 04:42] LABS: Band Neutrophils 2 % (0-10); Lymphocytes 5 % (20-55); Myelocytes 1 %; Nucleated Red Blood Cells 1 /100 WBC (0-5); Platelet Estimate Adequate; Total Cells Counted 100
[2022-05-13 04:43] LABS: Hypochromia Slight; Microcytosis Slight
[2022-05-13 04:49] LABS: Osmolality,Calculated 320.3 MOS/KG (273-304); Potassium 4.7 MMOL/L (3.5-5.1)
[2022-05-13] MEDS: MORPHINE 2 MG/1 ML SYRINGE IV PRN (06:09)
[2022-05-13] MEDS: DORNASE ALFA 2.5 MG/2.5 ML VIAL RESP TX SCH ×2 (07:20→19:55)
[2022-05-13] MEDS: FUROSEMIDE 40 MG/4 ML VIAL IV SCH (08:31)
[2022-05-13] MEDS: methylPREDNISolone SOD SUC 40 MG/1 ML VIAL IV SCH ×2 (08:31→21:03)
[2022-05-13] MEDS: ASPIRIN CHEW 81 MG TABLET PO SCH (08:31)
[2022-05-13] MEDS: CLOPIDOGREL 75 MG TABLET PO SCH (08:32)
[2022-05-13] MEDS: POLYETHYLENE GLYCOL POWDER 17 GM PACK PER TUBE SCH (08:32)
[2022-05-13] MEDS: PANTOPRAZOLE 40 MG VIAL IV SCH (08:32)
[2022-05-13] MEDS: MICAFUNGIN 100 MG in SODIUM CHLORIDE 0.9% 100 ML IV SCH (10:33)
[2022-05-13] MEDS: ZINC OXIDE PASTE 113 GM TUBE TOP SCH ×2 (15:39→21:03)
[2022-05-13] MEDS: INSULIN GLARGINE 100 UNIT/ML SUBCUT SCH (21:03)
[2022-05-13] MEDS: ENOXAPARIN 40 MG/0.4 ML SYRINGE SUBCUT SCH (21:04)
[2022-05-14] MEDS: ALBUTEROL/IPRATROPIUM 3 ML NEB RESP TX SCH ×6 (02:10→22:37)
[2022-05-14 02:14] LABS: Arterial Base Excess iSTAT 9 MMOL/L (-2.5-2.5); Arterial Bicarbonate iSTAT 32.6 MMOL/L (20-26); Arterial O2 Saturation iSTAT 99 % (95-100); Arterial PCO2 iSTAT 40 MM HG (35-48); Arterial PO2 iSTAT 125 MM HG (80-95); Arterial Total CO2 iSTAT 34 MMO/L (23-27); Arterial pH iSTAT 7.517 (7.35-7.45)
[2022-05-14] MEDS: MEROPENEM 500 MG in SODIUM CHLORIDE 0.9% 100 ML IV SCH ×4 (03:00→20:50)
[2022-05-14 04:13] LABS: Basophils # 0.1 10*3/uL (0.0-0.2); Basophils % 0.3 % (0.0-0.8); Eosinophils % 0.1 % (0.00-10.9); Hematocrit 23.9 VOL% (42.0-52.0); Hemoglobin 7.3 GM/DL (14.0-18.0); Immature Granulocytes % 6.3 %; Immature Granulocytes Absolute 1.41 #; Lymphocytes # 1.5 10*3/uL (1.4-4.0); Lymphocytes % 6.5 % (21.2-54.2); Mean Corpuscular HGB Conc 30.5 GM/DL (32-36); Mean Corpuscular Volume 91.2 FL (87-102); Mean Platelet Volume 11.7 FL (9.6-12.0); Monocytes # 1.1 10*3/uL (0.11-0.8); Monocytes % 4.7 % (1.7-12.7); Neutrophils % 82.1 % (38.7-73.9); Platelet Count 623 T/CUMM (130-400); Red Blood Count 2.62 MC/CUMM (3.8-5.5); Red Cell Distribution Width 17.7 % (9.3-17.3); White Blood Count 22.5 T/CUMM (4-12)
[2022-05-14 04:30] LABS: Calcium 7.9 MG/DL (8.5-10.1); Osmolality,Calculated 321.3 MOS/KG (273-304)
[2022-05-14 04:41] LABS: Hypochromia 1+; Lymphocytes 5 % (20-55); Microcytosis Slight; Platelet Estimate Increased; Total Cells Counted 100
[2022-05-14] MEDS: INSULIN LISPRO 100 UNIT/ML SUBCUT SCH ×3 (05:07→18:45)
[2022-05-14] MEDS: DORNASE ALFA 2.5 MG/2.5 ML VIAL RESP TX SCH (07:20)
[2022-05-14] MEDS: PANTOPRAZOLE 40 MG VIAL IV SCH (08:47)
[2022-05-14] MEDS: methylPREDNISolone SOD SUC 40 MG/1 ML VIAL IV SCH ×2 (08:47→20:50)
[2022-05-14] MEDS: CLOPIDOGREL 75 MG TABLET PO SCH (08:48)
[2022-05-14] MEDS: ASPIRIN CHEW 81 MG TABLET PO SCH (08:49)
[2022-05-14] MEDS: POLYETHYLENE GLYCOL POWDER 17 GM PACK PER TUBE SCH (08:50)
[2022-05-14] MEDS: ZINC OXIDE PASTE 113 GM TUBE TOP SCH ×2 (08:50→20:50)
[2022-05-14] MEDS: MICAFUNGIN 100 MG in SODIUM CHLORIDE 0.9% 100 ML IV SCH (09:43)
[2022-05-14] MEDS: hydrALAZINE 20 MG/1 ML VIAL IV PRN ×3 (12:17→22:11)
[2022-05-14] MEDS: MORPHINE 2 MG/1 ML SYRINGE IV PRN ×2 (14:12→20:51)
[2022-05-14] MEDS: LABETALOL 20 MG/4 ML SYRINGE IV PRN (14:41)
[2022-05-14] MEDS ORDERED: hydrALAZINE 20 MG/1 ML VIAL IV ONE (15:09)
[2022-05-14] MEDS ORDERED: cloNIDine 0.1 MG/24 HR PATCH TRANSDERM SCH (18:30)
[2022-05-14] MEDS: cloNIDine 0.1 MG/24 HR PATCH TRANSDERM SCH (18:45)
[2022-05-14] MEDS: ENOXAPARIN 40 MG/0.4 ML SYRINGE SUBCUT SCH (20:50)
[2022-05-14] MEDS: INSULIN GLARGINE 100 UNIT/ML SUBCUT SCH (20:50)
[2022-05-15] MEDS: INSULIN LISPRO 100 UNIT/ML SUBCUT SCH ×4 (00:01→17:59)
[2022-05-15] MEDS: ALBUTEROL/IPRATROPIUM 3 ML NEB RESP TX SCH ×5 (02:00→22:30)
[2022-05-15] MEDS: MEROPENEM 500 MG in SODIUM CHLORIDE 0.9% 100 ML IV SCH ×4 (03:13→22:55)
[2022-05-15 03:47] LABS: Basophils # 0.1 10*3/uL (0.0-0.2); Basophils % 0.5 % (0.0-0.8); Hematocrit 28.5 VOL% (42.0-52.0); Hemoglobin 8.4 GM/DL (14.0-18.0); Immature Granulocytes % 7.3 %; Immature Granulocytes Absolute 1.71 #; Lymphocytes # 1.4 10*3/uL (1.4-4.0); Mean Corpuscular HGB Conc 29.5 GM/DL (32-36); Mean Corpuscular Volume 91.3 FL (87-102); Mean Platelet Volume 11.5 FL (9.6-12.0); Monocytes # 0.7 10*3/uL (0.11-0.8); NRBC # 0.26 10*3/uL; Neutrophils % 83.2 % (38.7-73.9); Platelet Count 689 T/CUMM (130-400); Red Blood Count 3.12 MC/CUMM (3.8-5.5); Red Cell Distribution Width 18.1 % (9.3-17.3); White Blood Count 23.5 T/CUMM (4-12)
[2022-05-15 04:06] LABS: Band Neutrophils 3 % (0-10); Calcium 8.3 MG/DL (8.5-10.1); Hypochromia Slight; Lymphocytes 5 % (20-55); Microcytosis Slight; Osmolality,Calculated 323.9 MOS/KG (273-304); Platelet Estimate Adequate; Total Cells Counted 100
[2022-05-15] MEDS: POLYETHYLENE GLYCOL POWDER 17 GM PACK PER TUBE SCH (08:07)
[2022-05-15] MEDS: LABETALOL 20 MG/4 ML SYRINGE IV PRN (08:08)
[2022-05-15] MEDS: PANTOPRAZOLE 40 MG VIAL IV SCH (08:09)
[2022-05-15] MEDS: methylPREDNISolone SOD SUC 40 MG/1 ML VIAL IV SCH ×2 (08:09→22:11)
[2022-05-15] MEDS: ZINC OXIDE PASTE 113 GM TUBE TOP SCH ×2 (08:39→23:01)
[2022-05-15] MEDS: CLOPIDOGREL 75 MG TABLET PO SCH (13:35)
[2022-05-15] MEDS: ASPIRIN CHEW 81 MG TABLET PO SCH (13:35)
[2022-05-15] MEDS: ARFORMOTEROL 15 MCG/2 ML NEB RESP TX SCH ×2 (13:35→19:50)
[2022-05-15] MEDS: ENOXAPARIN 40 MG/0.4 ML SYRINGE SUBCUT SCH (22:55)
[2022-05-15] MEDS: INSULIN GLARGINE 100 UNIT/ML SUBCUT SCH (22:56)
[2022-05-15] MEDS: MORPHINE 2 MG/1 ML SYRINGE IV PRN (23:02)
[2022-05-16] MEDS: ALBUTEROL/IPRATROPIUM 3 ML NEB RESP TX SCH ×5 (02:00→20:07)
[2022-05-16] MEDS: INSULIN LISPRO 100 UNIT/ML SUBCUT SCH ×4 (04:06→18:05)
[2022-05-16 04:36] LABS: Basophils # 0.1 10*3/uL (0.0-0.2); Basophils % 0.6 % (0.0-0.8); Eosinophils % 0.2 % (0.00-10.9); Hematocrit 28.9 VOL% (42.0-52.0); Hemoglobin 8.3 GM/DL (14.0-18.0); Immature Granulocytes % 5.6 %; Immature Granulocytes Absolute 0.99 #; Lymphocytes # 1.5 10*3/uL (1.4-4.0); Lymphocytes % 8.4 % (21.2-54.2); Mean Corpuscular HGB Conc 28.7 GM/DL (32-36); Mean Corpuscular Volume 95.4 FL (87-102); Mean Platelet Volume 11.6 FL (9.6-12.0); Monocytes # 0.9 10*3/uL (0.11-0.8); Monocytes % 5.1 % (1.7-12.7); NRBC # 0.05 10*3/uL; Neutrophils % 80.1 % (38.7-73.9); Platelet Count 654 T/CUMM (130-400); Red Blood Count 3.03 MC/CUMM (3.8-5.5); Red Cell Distribution Width 18.2 % (9.3-17.3); White Blood Count 17.7 T/CUMM (4-12)
[2022-05-16 04:53] LABS: Hypochromia Slight; Microcytosis Slight
[2022-05-16 04:54] LABS: Platelet Estimate Increased
[2022-05-16 04:55] LABS: Calcium 8.9 MG/DL (8.5-10.1); Osmolality,Calculated 328.2 MOS/KG (273-304); Potassium 3.8 MMOL/L (3.5-5.1)
[2022-05-16] MEDS: MEROPENEM 500 MG in SODIUM CHLORIDE 0.9% 100 ML IV SCH ×4 (05:26→22:38)
[2022-05-16] MEDS: ARFORMOTEROL 15 MCG/2 ML NEB RESP TX SCH ×2 (07:30→20:07)
[2022-05-16] MEDS: DEXTROSE 5% 1,000 ML IV SCH ×2 (07:31→18:04)
[2022-05-16] MEDS: POLYETHYLENE GLYCOL POWDER 17 GM PACK PER TUBE SCH (09:30)
[2022-05-16] MEDS: PANTOPRAZOLE 40 MG VIAL IV SCH (09:31)
[2022-05-16] MEDS: ASPIRIN CHEW 81 MG TABLET PO SCH (09:31)
[2022-05-16] MEDS: CLOPIDOGREL 75 MG TABLET PO SCH (09:31)
[2022-05-16] MEDS: ZINC OXIDE PASTE 113 GM TUBE TOP SCH ×2 (09:32→20:15)
[2022-05-16] MEDS: methylPREDNISolone SOD SUC 40 MG/1 ML VIAL IV SCH ×2 (09:32→22:39)
[2022-05-16] MEDS: INSULIN GLARGINE 100 UNIT/ML SUBCUT SCH (21:50)
[2022-05-16] MEDS: MORPHINE 2 MG/1 ML SYRINGE IV PRN (22:30)
[2022-05-16] MEDS: ENOXAPARIN 40 MG/0.4 ML SYRINGE SUBCUT SCH (22:38)
[2022-05-16] MEDS: SALIVA SUBSTITUTE SPRAY 60 ML CAN SWISH/SPIT PRN (22:42)
[2022-05-17] MEDS: ALBUTEROL/IPRATROPIUM 3 ML NEB RESP TX SCH ×7 (00:28→23:49)
[2022-05-17] MEDS: INSULIN LISPRO 100 UNIT/ML SUBCUT SCH ×5 (01:27→23:16)
[2022-05-17] MEDS: MEROPENEM 500 MG in SODIUM CHLORIDE 0.9% 100 ML IV SCH ×4 (03:25→20:14)
[2022-05-17 04:57] LABS: Osmolality,Calculated 326.7 MOS/KG (273-304); Potassium 4.5 MMOL/L (3.5-5.1)
[2022-05-17 05:06] LABS: Basophils # 0.1 10*3/uL (0.0-0.2); Basophils % 0.4 % (0.0-0.8); Eosinophils % 0.2 % (0.00-10.9); Hematocrit 27.6 VOL% (42.0-52.0); Immature Granulocytes % 4.5 %; Immature Granulocytes Absolute 0.61 #; Lymphocytes % 7.5 % (21.2-54.2); Mean Corpuscular Volume 94.2 FL (87-102); Mean Platelet Volume 11.8 FL (9.6-12.0); Monocytes # 0.5 10*3/uL (0.11-0.8); Monocytes % 3.9 % (1.7-12.7); NRBC # 0.03 10*3/uL; Neutrophils % 83.5 % (38.7-73.9); Platelet Count 555 T/CUMM (130-400); Red Blood Count 2.93 MC/CUMM (3.8-5.5); Red Cell Distribution Width 17.5 % (9.3-17.3); White Blood Count 13.4 T/CUMM (4-12)
[2022-05-17] MEDS: DEXTROSE 5% 1,000 ML IV SCH ×3 (05:14→21:07)
[2022-05-17 05:21] LABS: Lymphocytes 7 % (20-55); Platelet Estimate Increased; Total Cells Counted 100
[2022-05-17] MEDS: ARFORMOTEROL 15 MCG/2 ML NEB RESP TX SCH ×2 (07:16→18:51)
[2022-05-17] MEDS: methylPREDNISolone SOD SUC 40 MG/1 ML VIAL IV SCH ×2 (09:10→09:37)
[2022-05-17] MEDS: ASPIRIN CHEW 81 MG TABLET PO SCH (09:37)
[2022-05-17] MEDS: CLOPIDOGREL 75 MG TABLET PO SCH (09:37)
[2022-05-17] MEDS: POLYETHYLENE GLYCOL POWDER 17 GM PACK PER TUBE SCH (09:39)
[2022-05-17] MEDS: PANTOPRAZOLE 40 MG VIAL IV SCH (09:41)
[2022-05-17] MEDS: ZINC OXIDE PASTE 113 GM TUBE TOP SCH ×2 (09:48→20:15)
[2022-05-17] MEDS: ACETAMINOPHEN 325 MG/10.15 ML UDCUP PO PRN (20:13)
[2022-05-17] MEDS: INSULIN GLARGINE 100 UNIT/ML SUBCUT SCH (20:15)
[2022-05-17] MEDS: ENOXAPARIN 40 MG/0.4 ML SYRINGE SUBCUT SCH (20:15)
[2022-05-18] MEDS: MEROPENEM 500 MG in SODIUM CHLORIDE 0.9% 100 ML IV SCH ×4 (03:15→20:34)
[2022-05-18 03:38] LABS: Calcium 8.3 MG/DL (8.5-10.1); Osmolality,Calculated 309.4 MOS/KG (273-304); Potassium 3.9 MMOL/L (3.5-5.1)
[2022-05-18 03:44] LABS: Basophils # 0.1 10*3/uL (0.0-0.2); Basophils % 0.4 % (0.0-0.8); Eosinophils # 0.4 10*3/uL (0.0-0.87); Eosinophils % 3.1 % (0.00-10.9); Hematocrit 28.3 VOL% (42.0-52.0); Immature Granulocytes % 4.1 %; Immature Granulocytes Absolute 0.49 #; Lymphocytes # 1.4 10*3/uL (1.4-4.0); Lymphocytes % 11.3 % (21.2-54.2); Mean Corpuscular HGB Conc 28.3 GM/DL (32-36); Mean Corpuscular Volume 94.6 FL (87-102); Mean Platelet Volume 11.1 FL (9.6-12.0); Monocytes # 0.9 10*3/uL (0.11-0.8); Monocytes % 7.1 % (1.7-12.7); Platelet Count 505 T/CUMM (130-400); Red Blood Count 2.99 MC/CUMM (3.8-5.5); Red Cell Distribution Width 17.1 % (9.3-17.3); White Blood Count 12.1 T/CUMM (4-12)
[2022-05-18 04:04] LABS: Platelet Estimate Increased
[2022-05-18 04:05] LABS: Hypochromia Slight
[2022-05-18] MEDS: LABETALOL 20 MG/4 ML SYRINGE IV PRN (04:10)
[2022-05-18] MEDS: ALBUTEROL/IPRATROPIUM 3 ML NEB RESP TX SCH ×6 (04:10→23:40)
[2022-05-18] MEDS: ARFORMOTEROL 15 MCG/2 ML NEB RESP TX SCH ×2 (07:33→19:10)
[2022-05-18] MEDS: INSULIN LISPRO 100 UNIT/ML SUBCUT SCH ×3 (07:51→18:13)
[2022-05-18] MEDS: PANTOPRAZOLE 40 MG VIAL IV SCH (08:52)
[2022-05-18] MEDS: POLYETHYLENE GLYCOL POWDER 17 GM PACK PER TUBE SCH (08:52)
[2022-05-18] MEDS: ASPIRIN CHEW 81 MG TABLET PO SCH (08:52)
[2022-05-18] MEDS: CLOPIDOGREL 75 MG TABLET PO SCH (08:52)
[2022-05-18] MEDS: methylPREDNISolone SOD SUC 40 MG/1 ML VIAL IV SCH (08:55)
[2022-05-18] MEDS: ZINC OXIDE PASTE 113 GM TUBE TOP SCH ×2 (09:03→20:35)
[2022-05-18] MEDS: DEXTROSE 5% 1,000 ML IV SCH (15:57)
[2022-05-18] MEDS: ENOXAPARIN 40 MG/0.4 ML SYRINGE SUBCUT SCH (20:34)
[2022-05-18] MEDS: INSULIN GLARGINE 100 UNIT/ML SUBCUT SCH (20:35)
[2022-05-19] MEDS: INSULIN LISPRO 100 UNIT/ML SUBCUT SCH ×4 (00:22→18:24)
[2022-05-19] MEDS: DEXTROSE 5% 1,000 ML IV SCH ×4 (02:19→22:27)
[2022-05-19] MEDS: ALBUTEROL/IPRATROPIUM 3 ML NEB RESP TX SCH ×5 (03:03→20:04)
[2022-05-19 03:28] LABS: Basophils # 0.1 10*3/uL (0.0-0.2); Basophils % 0.3 % (0.0-0.8); Eosinophils # 0.7 10*3/uL (0.0-0.87); Eosinophils % 4.5 % (0.00-10.9); Hematocrit 29.7 VOL% (42.0-52.0); Hemoglobin 8.7 GM/DL (14.0-18.0); Immature Granulocytes % 5.2 %; Immature Granulocytes Absolute 0.76 #; Lymphocytes # 1.7 10*3/uL (1.4-4.0); Lymphocytes % 11.3 % (21.2-54.2); Mean Corpuscular HGB Conc 29.3 GM/DL (32-36); Mean Corpuscular Volume 91.7 FL (87-102); Mean Platelet Volume 10.9 FL (9.6-12.0); Monocytes % 7.1 % (1.7-12.7); NRBC # 0.02 10*3/uL; Neutrophils % 71.6 % (38.7-73.9); Platelet Count 532 T/CUMM (130-400); Red Blood Count 3.24 MC/CUMM (3.8-5.5); Red Cell Distribution Width 16.6 % (9.3-17.3); White Blood Count 14.7 T/CUMM (4-12)
[2022-05-19 03:42] LABS: Calcium 7.8 MG/DL (8.5-10.1); Osmolality,Calculated 299.1 MOS/KG (273-304)
[2022-05-19 04:22] LABS: Eosinophils 4 % (0-10); Lymphocytes 10 % (20-55); Platelet Estimate Increased; Total Cells Counted 100
[2022-05-19 04:24] LABS: Microcytosis Slight
[2022-05-19] MEDS: ARFORMOTEROL 15 MCG/2 ML NEB RESP TX SCH ×2 (07:15→20:04)
[2022-05-19] MEDS: CLOPIDOGREL 75 MG TABLET PO SCH (10:39)
[2022-05-19] MEDS: PANTOPRAZOLE 40 MG VIAL IV SCH (10:39)
[2022-05-19] MEDS: predniSONE 10 MG TABLET PO SCH (10:39)
[2022-05-19] MEDS: ASPIRIN CHEW 81 MG TABLET PO SCH (10:39)
[2022-05-19] MEDS: ZINC OXIDE PASTE 113 GM TUBE TOP SCH ×2 (10:40→20:33)
[2022-05-19] MEDS: POLYETHYLENE GLYCOL POWDER 17 GM PACK PER TUBE SCH (10:40)
[2022-05-19] MEDS: HYDROmorphone 1 MG/1 ML SYRINGE IV PRN ×3 (13:20→22:31)
[2022-05-19] MEDS: MEROPENEM 500 MG in SODIUM CHLORIDE 0.9% 100 ML IV SCH ×3 (13:55→22:33)
[2022-05-19] MEDS: MICAFUNGIN 100 MG in SODIUM CHLORIDE 0.9% 100 ML IV SCH (13:56)
[2022-05-19] MEDS: INSULIN GLARGINE 100 UNIT/ML SUBCUT SCH (20:32)
[2022-05-19] MEDS: ENOXAPARIN 40 MG/0.4 ML SYRINGE SUBCUT SCH (20:32)
[2022-05-20] MEDS: INSULIN LISPRO 100 UNIT/ML SUBCUT SCH ×4 (00:04→17:40)
[2022-05-20] MEDS: ALBUTEROL/IPRATROPIUM 3 ML NEB RESP TX SCH ×5 (00:11→19:23)
[2022-05-20 04:27] LABS: Basophils # 0.1 10*3/uL (0.0-0.2); Basophils % 0.5 % (0.0-0.8); Eosinophils # 0.7 10*3/uL (0.0-0.87); Immature Granulocytes % 4.2 %; Immature Granulocytes Absolute 0.62 #; Lymphocytes # 1.6 10*3/uL (1.4-4.0); Lymphocytes % 10.8 % (21.2-54.2); Mean Corpuscular HGB Conc 29.6 GM/DL (32-36); Mean Corpuscular Volume 90.9 FL (87-102); Mean Platelet Volume 11.3 FL (9.6-12.0); Monocytes % 7.1 % (1.7-12.7); NRBC # 0.03 10*3/uL; Neutrophils % 72.4 % (38.7-73.9); Platelet Count 397 T/CUMM (130-400); Red Blood Count 2.97 MC/CUMM (3.8-5.5); Red Cell Distribution Width 16.3 % (9.3-17.3); White Blood Count 14.6 T/CUMM (4-12)
[2022-05-20 04:40] LABS: Calcium 7.9 MG/DL (8.5-10.1); Osmolality,Calculated 287.4 MOS/KG (273-304)
[2022-05-20 04:50] LABS: Band Neutrophils 2 % (0-10); Eosinophils 11 % (0-10); Lymphocytes 6 % (20-55); Platelet Estimate Adequate; Total Cells Counted 100
[2022-05-20 04:51] LABS: Hypochromia Slight; Microcytosis Slight
[2022-05-20] MEDS: MEROPENEM 500 MG in SODIUM CHLORIDE 0.9% 100 ML IV SCH ×4 (05:01→23:03)
[2022-05-20] MEDS: HYDROmorphone 1 MG/1 ML SYRINGE IV PRN ×5 (05:46→21:02)
[2022-05-20] MEDS: ARFORMOTEROL 15 MCG/2 ML NEB RESP TX SCH ×2 (06:53→19:23)
[2022-05-20] MEDS: PANTOPRAZOLE 40 MG VIAL IV SCH (08:00)
[2022-05-20] MEDS: POLYETHYLENE GLYCOL POWDER 17 GM PACK PER TUBE SCH (09:00)
[2022-05-20] MEDS: predniSONE 10 MG TABLET PO SCH (09:20)
[2022-05-20] MEDS: ASPIRIN CHEW 81 MG TABLET PO SCH (09:20)
[2022-05-20] MEDS: ENALAPRIL 2.5 MG/2 ML VIAL IV SCH ×3 (09:20→20:30)
[2022-05-20] MEDS: CLOPIDOGREL 75 MG TABLET PO SCH (09:20)
[2022-05-20] MEDS: DEXTROSE 5% 1,000 ML IV SCH ×2 (09:25→17:00)
[2022-05-20] MEDS: MICAFUNGIN 100 MG in SODIUM CHLORIDE 0.9% 100 ML IV SCH (12:00)
[2022-05-20] MEDS: ZINC OXIDE PASTE 113 GM TUBE TOP SCH ×2 (16:10→20:36)
[2022-05-20] MEDS: ENOXAPARIN 40 MG/0.4 ML SYRINGE SUBCUT SCH (20:36)
[2022-05-20] MEDS ORDERED: INSULIN GLARGINE 100 UNIT/ML SUBCUT SCH (21:00)
[2022-05-21] MEDS: ALBUTEROL/IPRATROPIUM 3 ML NEB RESP TX SCH ×2 (00:10→07:36)
[2022-05-21] MEDS: INSULIN LISPRO 100 UNIT/ML SUBCUT SCH ×3 (00:16→11:31)
[2022-05-21] MEDS: ENALAPRIL 2.5 MG/2 ML VIAL IV SCH ×2 (03:07→08:44)
[2022-05-21 04:48] LABS: Basophils # 0.1 10*3/uL (0.0-0.2); Basophils % 0.4 % (0.0-0.8); Eosinophils # 0.7 10*3/uL (0.0-0.87); Eosinophils % 4.6 % (0.00-10.9); Hematocrit 26.1 VOL% (42.0-52.0); Hemoglobin 7.7 GM/DL (14.0-18.0); Immature Granulocytes % 4.1 %; Immature Granulocytes Absolute 0.57 #; Lymphocytes # 1.3 10*3/uL (1.4-4.0); Lymphocytes % 8.9 % (21.2-54.2); Mean Corpuscular HGB Conc 29.5 GM/DL (32-36); Mean Corpuscular Volume 90.6 FL (87-102); Mean Platelet Volume 11.5 FL (9.6-12.0); Monocytes # 1.1 10*3/uL (0.11-0.8); Monocytes % 7.6 % (1.7-12.7); Neutrophils % 74.4 % (38.7-73.9); Platelet Count 358 T/CUMM (130-400); Red Blood Count 2.88 MC/CUMM (3.8-5.5); Red Cell Distribution Width 16.4 % (9.3-17.3); White Blood Count 14.1 T/CUMM (4-12)
[2022-05-21 05:05] LABS: Calcium 8.1 MG/DL (8.5-10.1); Osmolality,Calculated 283.8 MOS/KG (273-304); Potassium 3.9 MMOL/L (3.5-5.1)
[2022-05-21 05:08] LABS: Band Neutrophils 1 % (0-10); Eosinophils 3 % (0-10); Hypochromia 1+; Lymphocytes 11 % (20-55); Total Cells Counted 100
[2022-05-21 05:09] LABS: Microcytosis Slight; Platelet Estimate Normal; Polychromasia Slight; Stomatocytes Slight
[2022-05-21] MEDS: MEROPENEM 500 MG in SODIUM CHLORIDE 0.9% 100 ML IV SCH ×2 (05:25→11:58)
[2022-05-21] MEDS: DEXTROSE 5% 1,000 ML IV SCH (06:40)
[2022-05-21] MEDS: ARFORMOTEROL 15 MCG/2 ML NEB RESP TX SCH (07:36)
[2022-05-21] MEDS: cloNIDine 0.1 MG/24 HR PATCH TRANSDERM SCH (08:40)
[2022-05-21] MEDS: PANTOPRAZOLE 40 MG VIAL IV SCH (08:45)
[2022-05-21] MEDS: ZINC OXIDE PASTE 113 GM TUBE TOP SCH (08:46)
[2022-05-21] MEDS: predniSONE 10 MG TABLET PO SCH (08:46)
[2022-05-21] MEDS: CLOPIDOGREL 75 MG TABLET PO SCH (08:46)
[2022-05-21] MEDS: ASPIRIN CHEW 81 MG TABLET PO SCH (08:46)
[2022-05-21] MEDS: HYDROmorphone 1 MG/1 ML SYRINGE IV PRN (09:06)
[2022-05-21] MEDS: POLYETHYLENE GLYCOL POWDER 17 GM PACK PER TUBE SCH (09:15)
[2022-05-21 09:16] VITALS: BP 111/65
[2022-05-21] MEDS: MICAFUNGIN 100 MG in SODIUM CHLORIDE 0.9% 100 ML IV SCH (11:57)
== END 2022-05-21 13:50 | DRG 268 ==
LOC: N.RAD 06:13 → N.SDSINP 06:14 → N.ICU 17:00
PROVIDERS: ADMIT Surgery; ATTEND Surgery
PROC: IRERAAA (2022-04-24 06:35)

== ENCOUNTER 2022-06-11 06:41 | Inpatient (IN) ==
[~2022-06-11 06:41] MED LIST: LACTATED RINGERS 1,000 ML IV SCH; VANCOMYCIN INJ 1,000 MG in SODIUM CHLORIDE 0.9% 250 ML IV ONE
[2022-06-11] MEDS ORDERED: FAMOTIDINE 20 MG TABLET PO ONE (07:20)
[2022-06-11] MEDS ORDERED: ACETAMINOPHEN 500 MG TABLET PO ONE (07:20)
[2022-06-11] MEDS ORDERED: GABAPENTIN 400 MG CAPSULE PO ONE (07:20)
[2022-06-11] MEDS ORDERED: DIAZEPAM 5 MG TABLET PO ONE (07:20)
[2022-06-11] MEDS ORDERED: fentaNYL 100 MCG/2 ML VIAL ONE (08:13)
[2022-06-11] MEDS ORDERED: LIDOCAINE 2% 5 ML VIAL ONE (08:13)
[2022-06-11] MEDS ORDERED: propofoL 200 MG/20 ML VIAL IV ONE (08:13)
[2022-06-11] MEDS ORDERED: DEXMEDETOMIDINE 200 MCG/2 ML VIAL ONE (08:33)
[2022-06-11] MEDS ORDERED: LIDOCAINE 1% 5 ML VIAL ONE (08:33)
[2022-06-11] MEDS ORDERED: DEXAMETHASONE 4 MG/1 ML VIAL ONE (08:33)
[2022-06-11] MEDS ORDERED: MIDAZOLAM 2 MG/2 ML VIAL ONE (08:34)
[2022-06-11] MEDS ORDERED: ROPIVACAINE 0.5% 30 ML VIAL ONE (08:34)
[2022-06-11] MEDS ORDERED: ETOMIDATE 40 MG/20 ML VIAL IV ONE (09:19)
[2022-06-11] MEDS ORDERED: ONDANSETRON 4 MG/2 ML VIAL ONE (09:19)
[2022-06-11] MEDS ORDERED: PHENYLEPHRINE 1 MG/10 ML SYRINGE IV ONE (09:20)
[2022-06-11] MEDS ORDERED: KETOROLAC 30 MG/1 ML VIAL ONE (09:31)
[2022-06-11] MEDS ORDERED: SEVOFLURANE 1 UNIT/15 MINUTE INH ONE (10:02)
[2022-06-11] MEDS ORDERED: HYDROmorphone 1 MG/1 ML SYRINGE IV PRN (10:17)
[2022-06-11] MEDS ORDERED: ONDANSETRON 4 MG/2 ML VIAL IV PRN (10:17)
[2022-06-11 11:22] VITALS: BP 95/65
== END 2022-06-11 11:22 | DRG 240 ==
LOC: N.SDSINP 06:41
PROVIDERS: ADMIT Surgery; ATTEND Surgery